=== PATIENT | male | born 1980 | race African-American/Black ===

== ENCOUNTER 2016-07-02 03:45 | Inpatient (IN) | payer MEDICARE, MEDICAID ==
[2016-07-02] VITALS (13 sets, daily range): BP systolic 115–172; BP diastolic 69–113; PULSE 62–105; RESP 14–22; TEMP 97.7–99.3; O2SAT 89–100
[~2016-07-02] VITALS: Ht 182.9 cm; Wt 99.5 kg
[~2016-07-02 03:45] MED LIST: AMOX875T PO; METO25TA3 PO; ZYRT10TA PO
[2016-07-02] MEDS ORDERED: SODIUM CHLOR 0.9% 1000 ML INJ 1,000 ML IV ONE ×2 (04:07→06:45)
[2016-07-02] MEDS ORDERED: SODIUM CHLORIDE 0.9% FLUSH 5 ML FLUSH IVF PRN (04:15)
[2016-07-02 04:30] LABS: AUTOMATED NEUTROPHIL # 2.9 TH/MM3 (1.8-7.7); BASOPHIL # 0.1 TH/MM3 (0-0.2); BASOPHIL % 0.7 % (0.0-2.0); EOSINOPHIL # 0.1 TH/MM3 (0-0.4); EOSINOPHIL % 1.5 % (0.0-4.0); HEMATOCRIT 47.8 % (39.0-51.0); LYMPH % 56.2 % (9.0-44.0); LYMPHOCYTE # 4.7 TH/MM3 (1.0-4.8); MEAN CELL VOLUME 95.1 FL (80.0-100.0); MEAN CORPUSCULAR HEMOGLOBIN 30.6 PG (27.0-34.0); MEAN CORPUSCULAR HGB CONC 32.2 % (32.0-36.0); MONO % 7.8 % (0.0-8.0); NEUT % 33.8 % (16.0-70.0); PLATELET COUNT 273 TH/MM3 (150-450); RED BLOOD COUNT 5.03 MIL/MM3 (4.50-5.90); RED CELL DISTRIBUTION WIDTH 13.8 % (11.6-17.2); WHITE BLOOD COUNT 8.4 TH/MM3 (4.0-11.0)
[2016-07-02 04:35] LABS: HEMO FLAGS AUTO DIFF
[2016-07-02 04:44] LABS: ALT (GPT) 33 U/L (12-78); ANION GAP 18 MEQ/L (5-15); AST (GOT) 34 U/L (15-37); BICARBONATE 19.3 MEQ/L (21.0-32.0); BLOOD UREA NITROGEN 16 MG/DL (7-18); CHLORIDE 106 MEQ/L (98-107); GLOMERULAR FILTRATION RATE 73 ML/MIN (>89); POTASSIUM 3.9 MEQ/L (3.5-5.1); SODIUM (NA) 143 MEQ/L (136-145)
[2016-07-02 04:47] LABS: ALKALINE PHOSPHATASE 100 U/L (45-117); TOTAL BILIRUBIN ADULT 0.3 MG/DL (0.2-1.0)
[2016-07-02 05:06] LABS: BLOOD GAS BASE EXCESS -3.9 mmol/L (-2-2); BLOOD GAS CARBOXYHEMOGLOBIN 3.8 % (0-4); BLOOD GAS HCO3 21 mmol/L (22-26); BLOOD GAS METHEMOGLOBIN 1.9 % (0-2); BLOOD GAS O2 HGB SATURATION 81 % (90-100); BLOOD GAS OXYGEN CONTENT 16.3 Vol % (12.0-20.0); BLOOD GAS PCO2 43 mmHg (38-42); BLOOD GAS PO2 55 mmHG (61-120); BLOOD GAS TOTAL HGB 14.3 G/DL (12.0-16.0); TEMP CORR TO 98.6
[2016-07-02 05:07] LABS: CRITICAL VALUE YES; DRAW SITE RT RADIAL; FIO2 100 %; NUMBER OF ARTERIAL PUNCTURES 1; OXYGEN DEVICE NRB; STAT YES; ULNAR PULSE PRESENT
--- NOTE | 2016-07-02 05:08 | RADRPT ---
EXAM DATE/TIME: 07/02/2016 04:42 [facility] COMPARISON: CT BRAIN W/O CONTRAST, January 17, 2016, 19:29. INDICATIONS : Seizure. RADIATION DOSE: 37.99 CTDIvol (mGy) MEDICAL HISTORY : Hypertension. SURGICAL HISTORY : Tonsillectomy. ENCOUNTER: Initial ACUITY: 1 day PAIN SCALE: 0/10 LOCATION: cranial TECHNIQUE: Multiple contiguous axial images were obtained of the head. Using automated exposure control and adj ustment of the mA and/or kV according to patient size, radiation dose was kept as low as reasonably a chievable to obtain optimal diagnostic quality images. FINDINGS: CEREBRUM: The ventricles are normal for age. No evidence of midline shift, mass lesion, hemorrhage or acute in farction. No extra-axial fluid collections are seen. POSTERIOR FOSSA: The cerebellum and brainstem are intact. The 4th ventricle is midline. The cerebellopontine angle i s unremarkable. EXTRACRANIAL: The visualized portion of the orbits is intact. Chronic left maxillary sinus disease. SKULL: The calvaria is intact. No evidence of skull fracture. CONCLUSION: Stable and unremarkable CT brain compared to the prior exam. Dinh Frias MD on July 02, 2016 at 5:05 Board Certified Radiologist. This report was verified electronically.
[2016-07-02 05:21] LABS: SCAN/DIFF AUTO DIFF CONFIRMED
[2016-07-02 05:37] LABS: APTT (PATIENT) 24.3 SEC (24.3-30.1); INTERNATIONAL NORMALIZED RATIO 0.9 RATIO; PROTHROMBIN TIME - PATIENT 10.4 SEC (9.8-11.6)
--- NOTE | 2016-07-02 05:37 | PD ---
HPI Chief Complaint: Seizure Time Seen by Provider: 03:57 Travel History International Travel<30 days: No Contact w/Intl Traveler<30days: No Traveled to known affect area: No History of Present Illness HPI The patient is a 36 year old male who presents to the [facility] emergency department with a history of reported generalized tonic-clonic seizure activity witnessed by his significant other at the bedside. He reports that she awoke to the bed shaking and him frothing at the mouth and biting his time. She reports that she rolled him over on his side and the symptoms resolved. She reports that this is the second time that he's had a seizure. He has been seen by Dr. Jackman, in follow-up of his evaluation in the emergency department for a new onset seizure. He has had an MRI of the brain done that was reportedly unremarkable. The patient has also followed up with his primary care physician in one of the family practice residents, Dr. Cano. He reports that he was not started on seizure medication. The patient on my arrival to the room is diaphoretic, O2 saturations are in the 70s. His significant other at the bedside reports that he has been intermittently having bouts of shortness of breath that they had been attributing to anxiety. She reports that he does have a history of sleep apnea and has CPAP, however he has not been wearing it regularly as he was feeling better. His other history is significant for recently being diagnosed with a sinus infection and being placed on amoxicillin. The patient reports that he has had a congested sounding cough recently. The patient denies any recent fevers, neck pain, chest pain, abdominal pain, vomiting, diarrhea, urinary symptoms, or other neurologic symptoms. The patient denies using any illicit drugs. [facility] Past Medical History Narrative Medical The patient's past medical history is significant for hypertension, history of seizure in January 2016, history of being legally blind, history of thrombophlebitis in the right leg, history of chronic varicose veins in the right leg Asthma: Yes Cardiovascular Problems: Yes (HTN) Diminished Hearing: No Hypertension: Yes Medical other: Yes (SLEEP APNEA ) Respiratory: Yes (BRONCHITIS) Immunizations Current: Yes Influenza Vaccination: No Past Surgical History Narrative Surgical The patient's past surgical history is significant for a tonsillectomy wrist ORIF, right thumb surgery. Tonsillectomy: Yes Social History Alcohol Use: No (PT DENIES) Tobacco Use: Yes (3-4 cigarettes per day) Substance Use: No Allergies-Medications (Allergen,Severity, Reaction): Coded Allergies: Latex (Verified Allergy, Intermediate, RASH "ONLY IF I WEAR THE GLOVES", ) Lisinopril (Verified Allergy, Intermediate, cough, 07/02/16) OLIVIA inhibitor cough Darvocet-N 100 (Verified Allergy, Mild, "MY FACE BREAKS OUT WITH WHELPS", 07/02/16) Reported Meds & Prescriptions Reported Meds & Active Scripts Active Amoxicillin 875 Mg Tab 875 Mg PO BID Metoprolol Tartrate 25 Mg Tab 25 Mg PO BID Review of Systems Except as stated in HPI: all other systems reviewed are Neg General / Constitutional: No: Fever Eyes: No: Visual changes HENT: Positive: Headaches, Rhinorrhea Cardiovascular: Positive: Dyspnea on exertion, No: Chest Pain or Discomfort Respiratory: Positive: Shortness of Breath Gastrointestinal: No: Nausea, Vomiting, Diarrhea, Abdominal Pain Genitourinary: No: Dysuria Musculoskeletal: No: Pain Skin: No Rash Neurologic: Positive: Change in Mentation, Seizures, No: Weakness, Focal Abnormalities, Slurred Speech, Sensory Disturbance Psychiatric: No: Depression Endocrine: No: Polydipsia Hematologic/Lymphatic: No: Easy Bruising Physical Exam Narrative General: The patient is a well-developed well-nourished male, initially diaphoretic on my arrival to the room with O2 saturations of 77% on room air. Head and Neck exam: Head is normocephalic atraumatic. Eyes: Pupils are equal round and reactive to light. Nose: Midline septum with pink mucous membranes Mouth: Dentition unremarkable. Moist mucus membranes. Posterior oropharynx is not erythematous. No tonsillar hypertrophy. Uvula midline. Airway patent. The patient has a contusion noted to bilateral sides of the tongue worse on the right compared to the left related to biting his tongue with seizure activity. Neck: No palpable lymphadenopathy. No nuchal rigidity. No thyromegaly. Cardiovascular: Sinus tachycardia in the low 100 without murmurs, gallops, or rubs. No pulse deficit to the extremities and simultaneous auscultation and palpation of his radial artery. Lungs: Crackles audible in the right lower lung base, no wheezes or rhonchi otherwise audible. Abdomen: Soft, without tenderness to palpation in all 4 quadrants of the abdomen. No guarding, rebound, or rigidity. normal bowel sounds are audible. Extremities: No clubbing, cyanosis, or edema. 2+ pulses in all 4 extremities. No calf tenderness on palpation. Back: No spinous process tenderness to palpation. No costovertebral angle tenderness to palpation. Neurologic Exam: Confused on my arrival to the room, however his O2 saturations were in the mid 70s. His mentation improved after being placed on a nonrebreather mask. Cranial nerves 2-12 were intact on exam. Strength is 5/5 in all 4 extremities. No sensory deficits noted. Skin Exam: No rash noted. Intact skin that is warm and diaphoretic. Data Data Last Documented VS Vital Signs Date Time Temp Pulse Resp B/P Pulse Ox O2 Delivery O2 Flow Rate FiO2 07/02/16 05:18 20 94 Non-Rebreather 15 07/02/16 05:16 62 134/84 07/02/16 04:50 100 07/02/16 03:50 97.7 Orders Complete Blood Count With Diff (07/02/16 04:07) Alcohol (Ethanol) (07/02/16 04:07) Drug Screen, Random Urine (07/02/16 04:07) Electrocardiogram (07/02/16 ) Ct Brain W/O Iv Contrast(Rout) (07/02/16 ) Blood Glucose (07/02/16 04:07) Ecg Monitoring (07/02/16 04:07) Iv Access Insert/Monitor (07/02/16 04:07) Oximetry (07/02/16 04:07) Comprehensive Metabolic Panel (07/02/16 04:07) Sodium Chlor 0.9% 1000 Ml Inj (Ns 1000 M (07/02/16 04:07) Sodium Chloride 0.9% Flush (Ns Flush) (07/02/16 04:15) Urinalysis - C+S If Indicated (07/02/16 04:07) Arterial Blood Gas (Abg) (07/02/16 04:34) Blood Culture (07/02/16 04:34) Influenzae A/B Antigen (07/02/16 04:34) Chest, Single Ap (07/02/16 04:34) Lactic Acid Sepsis Protocol (07/02/16 04:34) Creatine Kinase (Cpk) (07/02/16 04:34) Ckmb (Isoenzyme) Profile (07/02/16 04:34) Troponin I (07/02/16 04:34) B-Type Natriuretic Peptide (07/02/16 04:34) Prothrombin Time / Inr (Pt) (07/02/16 04:34) Act Partial Throm Time (Ptt) (07/02/16 04:34) D-Dimer (07/02/16 04:34) Magnesium (Mg) (07/02/16 04:34) Resp Bipap / Cpap Non Invas Vt (07/02/16 ) Ct Pulmonary Angiogram (07/02/16 05:49) Admit Order (Ed Use Only) (07/02/16 06:33) Sodium Chlor 0.9% 1000 Ml Inj (Ns 1000 M (07/02/16 06:45) CKMB (07/02/16 08:45) CKMB% (07/02/16 08:45) Labs Laboratory Tests Test 07/02/16 07/02/16 07/02/16 07/02/16 04:15 04:31 04:50 05:20 White Blood Count 8.4 TH/MM3 Red Blood Count 5.03 MIL/MM3 Hemoglobin 15.4 GM/DL Hematocrit 47.8 % Mean Corpuscular Volume 95.1 FL Mean Corpuscular Hemoglobin 30.6 PG Mean Corpuscular Hemoglobin 32.2 % Concent Red Cell Distribution Width 13.8 % Platelet Count 273 TH/MM3 Mean Platelet Volume 8.9 FL Neutrophils (%) (Auto) 33.8 % Lymphocytes (%) (Auto) 56.2 % Monocytes (%) (Auto) 7.8 % Eosinophils (%) (Auto) 1.5 % Basophils (%) (Auto) 0.7 % Neutrophils # (Auto) 2.9 TH/MM3 Lymphocytes # (Auto) 4.7 TH/MM3 Monocytes # (Auto) 0.7 TH/MM3 Eosinophils # (Auto) 0.1 TH/MM3 Basophils # (Auto) 0.1 TH/MM3 CBC Comment AUTO DIFF Differential Comment AUTO DIFF CONFIRMED Sodium Level 143 MEQ/L Potassium Level 3.9 MEQ/L Chloride Level 106 MEQ/L Carbon Dioxide Level 19.3 MEQ/L Anion Gap 18 MEQ/L Blood Urea Nitrogen 16 MG/DL Creatinine 1.34 MG/DL Estimat Glomerular Filtration 73 ML/MIN Rate Random Glucose 132 MG/DL Calcium Level 8.9 MG/DL Total Bilirubin 0.3 MG/DL Aspartate Amino Transf 34 U/L (AST/SGOT) Alanine Aminotransferase 33 U/L (ALT/SGPT) Alkaline Phosphatase 100 U/L B-Type Natriuretic Peptide 12 PG/ML Total Protein 8.0 GM/DL Albumin 4.0 GM/DL Ethyl Alcohol Level LESS THAN 3 MG/DL Blood Gas Puncture Site RT RADIAL Blood Gas Patient Temperature 98.6 Blood Gas HCO3 21 mmol/L Blood Gas Base Excess -3.9 mmol/L Blood Gas Oxygen Saturation 81 % Arterial Blood pH 7.32 Arterial Blood Partial 43 mmHg Pressure CO2 Arterial Blood Partial 55 mmHG Pressure O2 Arterial Blood Oxygen Content 16.3 Vol % Arterial Blood 3.8 % Carboxyhemoglobin Arterial Blood Methemoglobin 1.9 % Blood Gas Hemoglobin 14.3 G/DL Oxygen Delivery Device NRB Blood Gas Inspired Oxygen 100 % Prothrombin Time 10.4 SEC Prothromb Time International 0.9 RATIO Ratio Activated Partial 24.3 SEC Thromboplast Time D-Dimer Quantitative (PE/DVT) 4.58 MG/L FEU Lactic Acid Level 5.2 mmol/L Urine Color YELLOW Urine Turbidity HAZY Urine pH 5.0 Urine Specific [place] 1.014 Urine Protein 30 mg/dL Urine Glucose (UA) NEG mg/dL Urine Ketones 10 mg/dL Urine Occult Blood SMALL Urine Nitrite NEG Urine Bilirubin NEG Urine Urobilinogen LESS THAN 2.0 MG/DL Urine Leukocyte Esterase NEG Urine RBC LESS THAN 1 /hpf Urine WBC 1 /hpf Urine Squamous Epithelial 1 /hpf Cells Urine Bacteria RARE /hpf Urine Hyaline Casts 19 /lpf Urine Mucus FEW /lpf Microscopic Urinalysis Comment CULT NOT INDICATED Urine Opiates Screen NEG Urine Barbiturates Screen NEG Urine Amphetamines Screen NEG Urine Benzodiazepines Screen NEG Urine Cocaine Screen NEG Urine Cannabinoids Screen POS MDM Medical Decision Making Medical Screen Exam Complete: Yes Emergency Medical Condition: Yes Medical Record Reviewed: Yes Differential Diagnosis Seizure activity related to hypoxia, versus epilepsy. Shortness of breath related to pneumonia, versus influenza, versus new-onset congestive heart failure, versus acute coronary syndrome, versus ARDS Narrative Course During the course of the patients emergency department visit, the patients history, examination, and differential diagnosis were reviewed with the patient. The patient had IV access obtained and blood work sent for analysis. The patient was placed on a monitor worker with oximetry and blood pressure monitoring. An EKG was done. The patient's EKG shows a sinus rhythm heart rate of 62, no acute ST segment elevation is noted. No acute ST segment depression. The patient was provided supplemental oxygen immediately on my arrival to the room with the nonrebreather mask. An ABG was done on the nonrebreather mask and his PO2 was noted to be in the 50s. The patient was started on BiPAP. A chest x-ray was ordered in addition to the workup for seizure activity that was previously started. Blood cultures 2 were ordered lactic acid was ordered, influenza antigen was ordered. The patients laboratory studies were reviewed and remarkable for a white count of 8.4, hemoglobin 15.4, platelets 273 with 56.2, CMP is remarkable for CO2 of 19.3, anion gap 18, creatinine 1.34, glucose 132, BNP is 12, CPK and troponin I are pending. Lactic acid 5.2 which could be related to a combination of seizure activity and hypoxemia, PT PTT unremarkable, d-dimer 4.58, CTA to rule out PE was ordered. Urinalysis shows 30 protein 10 ketones small occult blood rare bacteria 19 hyalin casts, urine drug screen is positive for THC, alcohol less than 3. ABG on a nonrebreather mask reveals a pH of 7.32, bicarbonate 21, base excess -3.9, PCO2 43, PO2 55. The patient was placed on BiPAP. The patient's O2 saturation improved to 99- 100%. The patient became more awake and alert. Repeat ABG will be done on BiPAP to reassess. The patient reports feeling improved on BiPAP and is following commands, reporting that the shortness of breath has resolved. Radiology studies were reviewed and remarkable for a CT scan of the brain that is unremarkable. Chest x-ray was read by the reading radiologist as showing no acute abnormality. CTA to rule out PE is negative for PE, however the palpation patient has ground glass infiltrates bilaterally. The patients results were discussed with the patient, including the plan of care. I explained that further testing and/ or monitoring is indicated based on the patients history, examination, and/ or laboratory findings. Therefore, I recommended admission for additional evaluation. The patient expressed understanding and was agreeable with this plan. The patient was admitted to the hospital in guarded condition and sent to a bed under the care of family practice residents. Critical Care Narrative Aggregate critical care time was 45 minutes. Time to perform other separately billable procedures was not included in the critical care time. My time did not include minutes spent treating any other patients simultaneously or on activities that did not directly contribute to the patient's treatment. The services I provided to this patient were to treat and/or prevent clinically significant deterioration that could result in: Respiratory failure, versus cardiovascular collapse I provided critical care services requiring my management, as noted below: Chart data review, documentation time, medication orders and management, vital sign assessments/reviewing monitor data, ordering and reviewing lab tests, ordering and interpreting/reviewing x-rays and diagnostic studies, care of the patient and discussion of the patient with the admitting physicians. Sepsis Criteria SIRS Criteria (2 or more): Heart rate over 90 Physician Communication Physician Communication The patient's case was discussed with the family practice residents who did agree to admit the patient for further evaluation and treatment at this time. Diagnosis Primary Impression: Hypoxemia Additional Impression: Seizure Admitting Information Admitting Physician Requests: Admit Letty Westbrook MD Jul 02, 2016 05:37
[2016-07-02 05:39] LABS: BACTERIA, URINE RARE /hpf; BLOOD, URINE SMALL (NEG); COMMENT (UR) CULT NOT INDICATED; CULTURE IF INDICATED CULT NOT INDICATED; GLUCOSE,URINE NEG (NEG); HYALINE CAST, URINE 19 /lpf (RARE); KETONE, URINE 10 mg/dL (NEG); MUCUS URINE FEW /lpf (OCC); NITRITE,URINE NEG (NEG); SQUAMOUS EPITHELIAL CELL URINE 1 /hpf (0-5); URINE COLOR YELLOW (YELLW/STRAW)
[2016-07-02 05:42] LABS: AMPHETAMINE, URINE NEG (NEG); BARBITURATES, URINE NEG (NEG); COCAINE, URINE NEG (NEG)
--- NOTE | 2016-07-02 05:48 | RADRPT ---
EXAM DATE/TIME: 07/02/2016 05:01 [facility] COMPARISON: CHEST PA & LAT, December 08, 2011, 12:56. INDICATIONS : Shortness of breath. MEDICAL HISTORY : Hypertension. SURGICAL HISTORY : Tonsillectomy. ENCOUNTER: Initial ACUITY: 1 day PAIN SCORE: Non-responsive. LOCATION: Bilateral chest FINDINGS: A single view of the chest demonstrates the lungs to be symmetrically aerated without evidence of mas s, infiltrate or effusion. The cardiomediastinal contours are unremarkable. Osseous structures are intact. CONCLUSION: No acute infiltrates. Stable examination. Dinh Frias MD on July 02, 2016 at 5:46 Board Certified Radiologist. This report was verified electronically.
--- NOTE | 2016-07-02 06:34 | HHI.HP ---
[facility] Service Family Medicine Primary Care Physician Tran , R3 Damon Cano MD Admission Diagnosis Diagnoses: International Travel<30 Days: No Contact w/Intl Traveler<30days: No Known Affected Area: No History of Present Illness 36-year-old male with a past medical history significant for previous seizure 1 and hypertension presents to the emergency department status post seizure activity this evening. Patient was in bed asleep when his partner noticed a generalized shaking and frothing at the mouth. Patient also bit his tongue. He was then brought to the emergency department by his significant other. He was seen in January after having seizure activity and was referred to neurology who did a brain MRI and did not start him on any seizure medications at that time. Patient was recently treated for sinus infection with high-dose amoxicillin although he did not position his antibiotics. 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 (Yaima Henderson MD R3) Review of Systems Other Obtained mostly from significant other as patient was on BiPAP and having difficulty answering: Denies fever or chills Denies blurry vision, otorrhea, rhinorrhea Denies sore throat and cough No chest pain, palpitations, positive shortness of breath No abdominal pain Denies constipation/diarrhea/nausea/vomiting Denies muscle pain/weakness No rashes (Yaima Henderson MD R3) Past Family Social History Past Medical History Hypertension Recently diagnosed with sinus infection Previous seizure 1 Past Surgical History Tonsillectomy Reported Medications Reported Meds & Active Scripts Active Amoxicillin 875 Mg Tab 875 Mg PO BID Metoprolol Tartrate 25 Mg Tab 25 Mg PO BID (Yaima Henderson MD R3) Allergies: Coded Allergies: Latex (Verified Allergy, Intermediate, RASH "ONLY IF I WEAR THE GLOVES", ) Lisinopril (Verified Allergy, Intermediate, cough, 07/02/16) OLIVIA inhibitor cough Darvocet-N 100 (Verified Allergy, Mild, "MY FACE BREAKS OUT WITH WHELPS", 07/02/16) *MDRO Multi-Drug Resistant Organism (Verified Adverse Reaction, Unknown, MRSA, 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 Dad lives in the [place], health unknown. Siblings with hypertension. Social History to legally blind . Both can not drive, and walk everywhere. He has two children, 4 and 5 years old. (Yaima Henderson MD R3) Physical Exam Vital Signs Vital Signs Date Time Temp Pulse Resp B/P Pulse Ox O2 Delivery O2 Flow Rate FiO2 07/02/16 05:18 20 94 Non-Rebreather 15 07/02/16 05:16 62 14 134/84 100 BiPAP 07/02/16 04:50 98 100 07/02/16 03:56 97 18 93 Nasal Cannula 2 07/02/16 03:50 97.7 105 18 120/84 89 Physical Exam Gen.: No acute distress Head: Normocephalic. Atraumatic. EENT: Pupils equal round and reactive to light. Nose without drainage. Airway intact. Throat without injection. Cardiovascular: Regular rate and rhythm. No murmurs, rubs or gallops. Respiratory: Lungs clear to auscultation bilaterally. No wheezes or rhonchi. Abdomen: Soft, nontender, nondistended. No peritoneal signs. Musculoskeletal: No gross deformities. No edema. Skin: No obvious rashes or erythema. Neuro: Sensory and motor grossly intact. Cranial nerves II through XII grossly intact. Psych: Appropriate mood and affect Laboratory Laboratory Tests Test 07/02/16 07/02/16 07/02/16 07/02/16 04:15 04:31 04:50 05:20 White Blood Count 8.4 Red Blood Count 5.03 Hemoglobin 15.4 Hematocrit 47.8 Mean Corpuscular Volume 95.1 Mean Corpuscular Hemoglobin 30.6 Mean Corpuscular Hemoglobin 32.2 Concent Red Cell Distribution Width 13.8 Platelet Count 273 Mean Platelet Volume 8.9 Neutrophils (%) (Auto) 33.8 Lymphocytes (%) (Auto) 56.2 Monocytes (%) (Auto) 7.8 Eosinophils (%) (Auto) 1.5 Basophils (%) (Auto) 0.7 Neutrophils # (Auto) 2.9 Lymphocytes # (Auto) 4.7 Monocytes # (Auto) 0.7 Eosinophils # (Auto) 0.1 Basophils # (Auto) 0.1 CBC Comment AUTO DIFF Differential Comment AUTO DIFF CONFIRMED Sodium Level 143 Potassium Level 3.9 Chloride Level 106 Carbon Dioxide Level 19.3 Anion Gap 18 Blood Urea Nitrogen 16 Creatinine 1.34 Estimat Glomerular Filtration 73 Rate Random Glucose 132 Calcium Level 8.9 Total Bilirubin 0.3 Aspartate Amino Transf 34 (AST/SGOT) Alanine Aminotransferase 33 (ALT/SGPT) Alkaline Phosphatase 100 B-Type Natriuretic Peptide 12 Total Protein 8.0 Albumin 4.0 Ethyl Alcohol Level LESS THAN 3 Blood Gas Puncture Site RT RADIAL Blood Gas Patient Temperature 98.6 Blood Gas HCO3 21 Blood Gas Base Excess -3.9 Blood Gas Oxygen Saturation 81 Arterial Blood pH 7.32 Arterial Blood Partial 43 Pressure CO2 Arterial Blood Partial 55 Pressure O2 Arterial Blood Oxygen Content 16.3 Arterial Blood 3.8 Carboxyhemoglobin Arterial Blood Methemoglobin 1.9 Blood Gas Hemoglobin 14.3 Oxygen Delivery Device NRB Blood Gas Inspired Oxygen 100 Prothrombin Time 10.4 Prothromb Time International 0.9 Ratio Activated Partial 24.3 Thromboplast Time D-Dimer Quantitative (PE/DVT) 4.58 Lactic Acid Level 5.2 Urine Color YELLOW Urine Turbidity HAZY Urine pH 5.0 Urine Specific [place] 1.014 Urine Protein 30 Urine Glucose (UA) NEG Urine Ketones 10 Urine Occult Blood SMALL Urine Nitrite NEG Urine Bilirubin NEG Urine Urobilinogen LESS THAN 2.0 Urine Leukocyte Esterase NEG Urine RBC LESS THAN 1 Urine WBC 1 Urine Squamous Epithelial 1 Cells Urine Bacteria RARE Urine Hyaline Casts 19 Urine Mucus FEW Microscopic Urinalysis Comment CULT NOT INDICATED Urine Opiates Screen NEG Urine Barbiturates Screen NEG Urine Amphetamines Screen NEG Urine Benzodiazepines Screen NEG Urine Cocaine Screen NEG Urine Cannabinoids Screen POS Date/Time Procedure Status Source Growth 07/02/16 04:50 Influenza Types A,B Antigen (TOD) - Final Complete Nasal Aspirate NEGATIVE FOR FLU A AND B ANTIGEN.... 07/02/16 04:50 Aerobic Blood Culture Received Blood Peripheral Pending 07/02/16 04:50 Anaerobic Blood Culture Received Blood Peripheral Pending (Yaima Henderson MD R3) Result Diagram: 07/02/16 0415 07/02/16 0415 Assessment and Plan Assessment and Plan 36-year-old male with past medical history significant for hypertension and previous seizure times one in January 2016 presents to the emergency department status post seizure activity. He was found to be hypoxic and is currently requiring BiPAP. 1. Hypoxemia Currently requiring BiPAP, satting 100% Secondary to seizure versus PE, CTA pending, d-dimer elevated 2. Seizure Neurology consulted, appreciate their assistance 3. Hypertension Continue home metoprolol 4. Elevated lactic acid Likely secondary to seizure activity 5. FEN Fluids: Normal saline at 150 cc/hour Electrolytes: Replete when necessary Nutrition: Regular diet Code Status Full code (Yaima Henderson MD R3) Attending Attestation Patient seen and examined. Case reviewed and discussed with the resident team. Agree with plan of care as discussed with me and documented in the resident note. agree with Neurology consult with his second seizure especially. Concerned about his needing bipap and his lactic acid and blood gas so will recommend placing him in the ICU for close monitoring (Patricia Khanna MD) Physician Certification 2 Midnight Certification Type: Admission for Inpatient Services Order for Inpatient Services The services are ordered in accordance with Medicare regulations or non- Medicare payer requirements, as applicable. In the case of services not specified as inpatient-only, they are appropriately provided as inpatient services in accordance with the 2-midnight benchmark. Estimated LOS (days): 2 2 days is the estimated time the patient will need to remain in the hospital, assuming treatment plan goals are met and no additional complications. Post-Hospital Plan: Home (Yaima Henderson MD R3) Yaima Henderson MD R3 Jul 02, 2016 06:34 Patricia Khanna MD Jul 03, 2016 14:26
[2016-07-02] MEDS: SODIUM CHLOR 0.9% 1000 ML INJ 1,000 ML IV SCH ×3 (06:41→20:39)
[2016-07-02] MEDS ORDERED: NALOXONE HCL 0.4 MG/ML AMP IV PRN (06:45)
[2016-07-02] MEDS ORDERED: SODIUM CHLORIDE 0.9% FLUSH 5 ML FLUSH FLUSH PRN (06:45)
[2016-07-02] MEDS ORDERED: ACETAMINOPHEN 325 MG TAB PO PRN (06:45)
[2016-07-02] MEDS ORDERED: ONDANSETRON HCL 4 MG/2 ML VIAL IVP PRN (06:45)
[2016-07-02] MEDS ORDERED: LORazepam 2 MG/ML VIAL IV PUSH PRN ×2 (07:00→12:15)
[2016-07-02 07:10] LABS: LACTIC ACID GHOST NOT REPORTABLE
[2016-07-02] MEDS ORDERED: IOHEXOL 350 MG/ML 10 ML VIAL (for RAD DIAG) IV ONE (07:14)
--- NOTE | 2016-07-02 07:23 | RADRPT ---
EXAM DATE/TIME: 07/02/2016 07:05 [facility] COMPARISON: No previous studies available for comparison. INDICATIONS : Sudden onset shortness of breath after seizure IV CONTRAST: 60 cc Omnipaque 350 (iohexol) IV RADIATION DOSE: 23.24 CTDIvol (mGy) MEDICAL HISTORY : Hypertension. SURGICAL HISTORY : None. ENCOUNTER: Initial ACUITY: 1 day PAIN SCALE: 0/10 LOCATION: chest TECHNIQUE: Volumetric scanning of the chest was performed using a pulmonary embolism protocol MIP images were re constructed. Using automated exposure control and adjustment of the mA and/or kV according to patien t size, radiation dose was kept as low as reasonably achievable to obtain optimal diagnostic quality images. FINDINGS: PULMONARY ARTERIES: No filling defects are seen in the pulmonary arteries through the segmental level. LUNGS: There is diffuse bilateral airspace disease/ground glass densities greater in the lower lobes. No co ncerning pulmonary nodule is visualized. PLEURAE: There is no pleural thickening or pleural effusion. MEDIASTINUM: There is good visualization of the great vessels of the middle mediastinum. No evidence of mediastin al or hilar adenopathy/mass. MUSCULOSKELETAL: Within normal limits for patient age. MISCELLANEOUS: The visualized upper abdominal organs demonstrate no acute abnormality. CONCLUSION: 1. Diffuse bilateral airspace disease/ground glass densities, likely infiltrate. 2. No evidence for pulmonary embolism. Polo Gallardo MD on July 02, 2016 at 7:18 Board Certified Radiologist. This report was verified electronically.
[2016-07-02] MEDS: HEPARIN SODIUM - SQ 10,000 UNITS/ML VIAL SQ SCH ×2 (08:15→16:11)
[2016-07-02] MEDS: SODIUM CHLORIDE 0.9% FLUSH 5 ML FLUSH FLUSH SCH ×2 (09:00→20:39)
[2016-07-02 09:51] LABS: MAGNESIUM 2.5 MG/DL (1.5-2.5)
[2016-07-02 10:03] LABS: CKMB 1.3 NG/ML (0.5-3.6)
[2016-07-02] MEDS: PIPERACIL-TAZO 4.5 GM PREMIX 100 ML IV SCH ×3 (10:29→23:07)
[2016-07-02] MEDS ORDERED: ACETAMINOPHEN/HYDROcodone 325 MG/5 MG TAB PO PRN ×2 (10:30)
[2016-07-02] MEDS ORDERED: methylPREDNISolone SOD SUCC 125 MG/2 ML VIAL IV PUSH ONE (11:00)
[2016-07-02] MEDS ORDERED: MIDAZOLAM HCL 5 MG/ML VIAL (1 ML) ONE (11:35)
[2016-07-02] MEDS ORDERED: PROPOFOL 1000 MG/100 ML INJ 100 ML ONE (11:41)
[2016-07-02] MEDS ORDERED: ROCURONIUM INJ 50 MG/5 ML VIAL ONE (11:42)
--- NOTE | 2016-07-02 12:32 | RADRPT ---
EXAM DATE/TIME: 07/02/2016 12:05 [facility] COMPARISON: CT PULMONARY ANGIOGRAM, July 02, 2016, 7:05. CHEST SINGLE AP, July 02, 2016, 5:01. INDICATIONS : Post intubation MEDICAL HISTORY : Hypertension. SURGICAL HISTORY : Tonsillectomy. ENCOUNTER: Subsequent ACUITY: 1 day PAIN SCORE: Non-responsive. LOCATION: Bilateral chest FINDINGS: Portable AP view of the chest demonstrates a normal-sized cardiac silhouette. Endotracheal tube is in place with tip at the aortic knob level measuring approximately 6 cm from the evert. Nasogastric tu be courses beyond the GE junction with tip in the gastric fundus. Multiple EKG lines overlie the katherin ent. Lungs are underinflated and there is airspace consolidation in the right midlung zone overlying the hilar region there is diffuse mild hazy opacity bilaterally. No pleural effusion or pneumothorax is seen. CONCLUSION: 1. Endotracheal tube in appropriate position with tip measuring approximately 6 cm from the evert. 2. Persistent diffuse bilateral airspace opacity with consolidation in the medial right midlung zone. Gokul Blancas MD on July 02, 2016 at 12:28 Board Certified Radiologist. This report was verified electronically.
[2016-07-02 12:49] LABS: BLOOD GAS BASE EXCESS -9.3 mmol/L (-2-2); BLOOD GAS CARBOXYHEMOGLOBIN 0.7 % (0-4); BLOOD GAS HCO3 17 mmol/L (22-26); BLOOD GAS O2 HGB SATURATION 95 % (90-100); BLOOD GAS OXYGEN CONTENT 18.3 Vol % (12.0-20.0); BLOOD GAS PCO2 44 mmHg (38-42); BLOOD GAS PO2 117 mmHg (61-120); BLOOD GAS TOTAL HGB 13.6 G/DL (12.0-16.0); CRITICAL VALUE YES; OXYGEN DEVICE VENTILATOR; TEMP CORR TO 98.6
[2016-07-02 12:50] LABS: DRAW SITE RT RADIAL; FIO2 100 %; NUMBER OF ARTERIAL PUNCTURES 1; STAT NO; ULNAR PULSE PRESENT; VENT SETTINGS SEE COMMENTS
[2016-07-02] MEDS ORDERED: MORPHINE SULFATE 4 MG/ML INJ IV PUSH PRN (13:00)
[2016-07-02] MEDS ORDERED: PROPOFOL 1000 MG/100 ML INJ 100 ML IV SCH (13:00)
[2016-07-02] MEDS ORDERED: SODIUM BICARBONATE 8.4% INJ 50 MEQ/50 ML SYR IV PUSH ONE (13:00)
[2016-07-02] MEDS ORDERED: LABETALOL HCL 100 MG/20 ML VIAL IV PUSH PRN (13:00)
--- NOTE | 2016-07-02 13:07 | PD.CONS ---
HPI Service Critical Care Medicine Consult Requested By Reason for Consult Generalized seizures, refractory to versed and ativan Primary Care Physician Angel Luis Mayfield D, MD Review of Systems ROS Unobtainable. Past Family Social History Allergies: Coded Allergies: Latex (Verified Allergy, Intermediate, RASH "ONLY IF I WEAR THE GLOVES", ) Lisinopril (Verified Allergy, Intermediate, cough, 07/02/16) OLIVIA inhibitor cough Darvocet-N 100 (Verified Allergy, Mild, "MY FACE BREAKS OUT WITH WHELPS", 07/02/16) Past Medical History Past Medical History Hypertension Recently diagnosed with sinus infection Previous seizure 1 Past Surgical History Tonsillectomy Reported Medications Reported Meds & Active Scripts Active Amoxicillin 875 Mg Tab 875 Mg PO BID Metoprolol Tartrate 25 Mg Tab 25 Mg PO BID Allergies: Coded Allergies: Latex (Verified Allergy, Intermediate, RASH "ONLY IF I WEAR THE GLOVES", ) Lisinopril (Verified Allergy, Intermediate, cough, 07/02/16) OLIVIA inhibitor cough Darvocet-N 100 (Verified Allergy, Mild, "MY FACE BREAKS OUT WITH WHELPS", 07/02/16) Physical Exam Vital Signs Vital Signs Date Time Temp Pulse Resp B/P Pulse Ox O2 Delivery O2 Flow Rate FiO2 07/02/16 11:45 100 100 07/02/16 10:00 79 18 166/113 98 Nasal Cannula 4 07/02/16 09:03 97 Nasal Cannula 4.00 07/02/16 07:33 68 22 172/109 100 BiPAP 07/02/16 05:18 20 94 Non-Rebreather 15 07/02/16 05:16 62 14 134/84 100 BiPAP 07/02/16 04:50 98 100 07/02/16 03:56 97 18 93 Nasal Cannula 2 07/02/16 03:50 97.7 105 18 120/84 89 Physical Exam P 138, BP 247/146, R 36 labored, Sats 76% Head: Diaphoretic, atraumatic. Neck: Rigid, airway partially obstructed. Lungs: Diffuse crackles and transmitted upper airway obstructive sounds. Heart: NL S1S2, tachycardia, Neck veins distended. Abdomen: Voluntary guarding. Soft otherwise Extremities: Warm, well perfused. Skin: Diaphoretic Neuro: Generalized tonic seizure, waxing and waning in severity. Laboratory Laboratory Tests Test 07/02/16 07/02/16 07/02/16 07/02/16 04:15 04:31 04:50 05:20 White Blood Count 8.4 Red Blood Count 5.03 Hemoglobin 15.4 Hematocrit 47.8 Mean Corpuscular Volume 95.1 Mean Corpuscular Hemoglobin 30.6 Mean Corpuscular Hemoglobin 32.2 Concent Red Cell Distribution Width 13.8 Platelet Count 273 Mean Platelet Volume 8.9 Neutrophils (%) (Auto) 33.8 Lymphocytes (%) (Auto) 56.2 Monocytes (%) (Auto) 7.8 Eosinophils (%) (Auto) 1.5 Basophils (%) (Auto) 0.7 Neutrophils # (Auto) 2.9 Lymphocytes # (Auto) 4.7 Monocytes # (Auto) 0.7 Eosinophils # (Auto) 0.1 Basophils # (Auto) 0.1 CBC Comment AUTO DIFF Differential Comment AUTO DIFF CONFIRMED Sodium Level 143 Potassium Level 3.9 Chloride Level 106 Carbon Dioxide Level 19.3 Anion Gap 18 Blood Urea Nitrogen 16 Creatinine 1.34 Estimat Glomerular Filtration 73 Rate Random Glucose 132 Calcium Level 8.9 Total Bilirubin 0.3 Aspartate Amino Transf 34 (AST/SGOT) Alanine Aminotransferase 33 (ALT/SGPT) Alkaline Phosphatase 100 B-Type Natriuretic Peptide 12 Total Protein 8.0 Albumin 4.0 Ethyl Alcohol Level LESS THAN 3 Blood Gas Puncture Site RT RADIAL Blood Gas Patient Temperature 98.6 Blood Gas HCO3 21 Blood Gas Base Excess -3.9 Blood Gas Oxygen Saturation 81 Arterial Blood pH 7.32 Arterial Blood Partial 43 Pressure CO2 Arterial Blood Partial 55 Pressure O2 Arterial Blood Oxygen Content 16.3 Arterial Blood 3.8 Carboxyhemoglobin Arterial Blood Methemoglobin 1.9 Blood Gas Hemoglobin 14.3 Oxygen Delivery Device NRB Blood Gas Inspired Oxygen 100 Prothrombin Time 10.4 Prothromb Time International 0.9 Ratio Activated Partial 24.3 Thromboplast Time D-Dimer Quantitative (PE/DVT) 4.58 Lactic Acid Level 5.2 Urine Color YELLOW Urine Turbidity HAZY Urine pH 5.0 Urine Specific [place] 1.014 Urine Protein 30 Urine Glucose (UA) NEG Urine Ketones 10 Urine Occult Blood SMALL Urine Nitrite NEG Urine Bilirubin NEG Urine Urobilinogen LESS THAN 2.0 Urine Leukocyte Esterase NEG Urine RBC LESS THAN 1 Urine WBC 1 Urine Squamous Epithelial 1 Cells Urine Bacteria RARE Urine Hyaline Casts 19 Urine Mucus FEW Microscopic Urinalysis Comment CULT NOT INDICATED Urine Opiates Screen NEG Urine Barbiturates Screen NEG Urine Amphetamines Screen NEG Urine Benzodiazepines Screen NEG Urine Cocaine Screen NEG Urine Cannabinoids Screen POS Test 07/02/16 07/02/16 08:45 12:35 Lactic Acid Level 0.9 Magnesium Level 2.5 Total Creatine Kinase 402 Creatine Kinase MB 1.3 Creatine Kinase MB % 0.3 Troponin I 0.07 Blood Gas Puncture Site RT RADIAL Blood Gas Patient Temperature 98.6 Blood Gas HCO3 17 Blood Gas Base Excess -9.3 Blood Gas Oxygen Saturation 95 Arterial Blood pH 7.22 Arterial Blood Partial 44 Pressure CO2 Arterial Blood Partial 117 Pressure O2 Arterial Blood Oxygen Content 18.3 Arterial Blood 0.7 Carboxyhemoglobin Arterial Blood Methemoglobin 1.0 Blood Gas Hemoglobin 13.6 Oxygen Delivery Device VENTILATOR Blood Gas Ventilator Setting SEE COMMENTS Blood Gas Inspired Oxygen 100 Date/Time Procedure Status Source Growth 07/02/16 04:50 Influenza Types A,B Antigen (TOD) - Final Complete Nasal Aspirate NEGATIVE FOR FLU A AND B ANTIGEN.... 07/02/16 04:50 Aerobic Blood Culture Received Blood Peripheral Pending 07/02/16 04:50 Anaerobic Blood Culture Received Blood Peripheral Pending Result Diagram: 07/02/16 0415 07/02/16 0415 Assessment and Plan Assessment and Plan Assessment: 1. Generalized Seizures, sustained. 2. Respiratory Failure, Hypoxemic. 3. Lactic Acidosis. 4. Encephalopathy. Plan: RESP: PRVC vent mode, propofol sedation for seizure control. Deep sedation pending EEG confirmation of control. PEEP 10. NEURO: Ativan iv prn breakthrough. AEDs per Neurology Service. CV: Labetalol for BP control. RENAL: Bicarb 2 amps iv. Confirm correction of lactic acidosis. ID: Cultures for fevers. HEME: Follow WBCs, coags in view of tongue bleeding. GI: NG to LIS. : Wang to CBD. PX: Hold chemical DVT px, protonix for GI. Overall impression: Recent crescendo seizure pattern with past history of seizures per record. No obvious instigating event, ? hypoxemia. He is critically ill with sustained seizures requiring heavy propofol suppression and mechanical ventilation. Appears to have a viral illness with diffuse alveolar infiltrates and impaired oxygen diffusion. Does he need an LP? Will discuss with primary service. Critical care 46 mins aside from procedures. Ciro Bejarano MD Jul 02, 2016 13:07
--- NOTE | 2016-07-02 13:41 | PD.PROCEDR ---
Procedure Note Procedure DX: Hypoxemic Respiratory Failure (J96.01), Generalized Seizures OP: Orotracheal Intubation (94079) Procedure: Bag mask ventilation while obtaining seizure control with versed 10 mg and ativan 4 mandy. Rocuronium administered 100 mg iv. Intubated orally with 8.0 tube. Position confirmed with CO2 detection, breath sounds, sats 100%. CXR with tube in good position. Ciro Bejarano MD Jul 02, 2016 13:41
[2016-07-02] MEDS: VANCOMYCIN INJ 1,500 MG in SODIUM CHLORID 0.9% 500 ML INJ 500 ML IV SCH (14:11)
[2016-07-02] MEDS ORDERED: levETIRAcetam 1000 MG INJ 100 ML IV ONE (14:15)
--- NOTE | 2016-07-02 14:26 | EKG ---
Date Performed: 07/02/2016 Time Performed: 13:33:40 PTAGE: 36 years EKG: Sinus rhythm NORMAL ECG NO SIGNIFICANT CHANGE FROM PRIOR ELECTROCARDIOGRAM. PREVIOUS TRACING : 07/02/2016 05.08 DOCTOR: Femi Perez Interpretating Date/Time 07/02/2016 14:24:34
--- NOTE | 2016-07-02 15:35 | MG ---
cc: BRYON LANE M.D., PETER KENT MD Lab No: Date: 07/02/2016 Age: 36 Sex: M INDICATION An urgent EEG was obtained on this 36-year-old patient with history of recurrent seizures. The patient is intubated on Diprivan at 50 mcg. Ativan was given recently. DESCRIPTION The EEG shows sleep spindles and theta activity throughout. There is some fluctuation in amplitude but overall there appears to be symmetrical rhythms. There are some small sharp waves/discharges in the frontal head regions bilaterally of uncertain significance. There is some probable faster frequencies in the alpha and beta range posteriorly and bilaterally. Hyperventilation could not be performed. Photic stimulation was unremarkable. INTERPRETATION This EEG shows asleep features throughout with some small sharp waves/discharges frontally bilaterally of uncertain significance. Specifically, no distinct epileptiform features present. Bryon Lane MD [facility] /2:51 PM /3:29 PM
--- NOTE | 2016-07-02 16:43 | MB ---
cc: BRYON LANE M.D. DATE OF CONSULTATION: 07/02/2016 REASON FOR CONSULTATION: Recurrent seizures. HISTORY OF PRESENT ILLNESS: The patient had a previous seizure in January 2016. He was not treated at that time with antiepileptic medications. He was doing well and I spoke to his . Around 03:00 a.m. this morning he developed a seizure. The observed a typical generalized tonic-clonic seizure. He was brought to the hospital and he appeared to have some respiratory discomfort. He was transferred to the unit and in the unit around 1 p.m. he had another seizure. The nurse described that he started with some apparent right facial weakness and speech difficulty, then this turned out to be a grand mal seizure that was apparently somewhat difficult to be controlled. He was subsequently intubated and has been given Diprivan. His current diagnosis also included apparent pneumonia, history of hypertension and recent sinus infectious process. He was taking amoxicillin 875 milligrams b.i.d. and metoprolol. No recent alcohol use. The denied any drugs. Urine toxicology positive for cannabinoids. NEUROLOGICAL EXAMINATION: The patient is sedated and upon somatosensory stimulation he does show some mild withdrawal bilaterally. Reflexes were trace responses but present and plantar responses were flexor bilaterally. Pupils were small and about the same size reactive. ANCILLARY DATA CBC essentially normal. Lymph percentage is elevated to 56.2. Creatinine 1.34, glucose 132, sodium, potassium normal. CPK mildly elevated to 402. CT brain normal and CT angiography of the chest suggests infiltrate and no pulmonary embolism. ASSESSMENT Seizure recurrence. He had at least a couple of seizures today, one at home and one in the hospital, now intubated. The previous seizure in January of 2016 was not treated at that point. I don't see any obvious need for lumbar puncture right now. I am starting him on Keppra. An EEG was obtained and I already saw the study which is benign. It shows sleep/sedated EEG background features. We will monitor the clinical course. An MRI will be necessary and the plan on obtaining this, perhaps tomorrow, when he is more stable, brain study. I will follow the neurological course. Thank you for asking us to assist in his care. Bryon Lane MD [facility]/[place] /2:57 PM /4:08 PM
--- NOTE | 2016-07-02 16:47 | EKG ---
Date Performed: 07/02/2016 Time Performed: 05:08:47 PTAGE: 36 years EKG: Sinus rhythm Compared to prior tracing no significant change NORMAL ECG PREVIOUS TRACING 12/08/2011 @ 12.50.48 DOCTOR: Daja Rodriguez Interpretating Date/Time 07/02/2016 16:46:09
[2016-07-02] MEDS: PROPOFOL 1000 MG/100 ML INJ 100 ML IV SCH ×2 (17:11→19:58)
[2016-07-02] MEDS: levETIRAcetam 250 MG TAB PO SCH (20:00)
[2016-07-02] MEDS: CHLORHEXIDINE 0.12% (ORAL KIT) 15 ML CUP MT SCH (20:39)
[2016-07-02] MEDS: levETIRAcetam INJ 750 MG in SODIUM CHLORIDE 0.9% INJ 100 ML IV SCH (21:45)
[2016-07-03] VITALS (12 sets, daily range): BP systolic 109–139; BP diastolic 69–82; PULSE 56–94; RESP 20–25; TEMP 98.1–98.9; O2SAT 95–100
[2016-07-03] MEDS: VANCOMYCIN INJ 1,500 MG in SODIUM CHLORID 0.9% 500 ML INJ 500 ML IV SCH ×2 (01:24→11:53)
[2016-07-03] MEDS: HEPARIN SODIUM - SQ 10,000 UNITS/ML VIAL SQ SCH ×3 (01:25→16:09)
[2016-07-03] MEDS: PROPOFOL 1000 MG/100 ML INJ 100 ML IV SCH ×3 (01:39→08:58)
[2016-07-03] MEDS: SODIUM CHLOR 0.9% 1000 ML INJ 1,000 ML IV SCH ×4 (02:16→23:00)
[2016-07-03 05:04] LABS: AUTOMATED NEUTROPHIL # 12.3 TH/MM3 (1.8-7.7); BASOPHIL % 0.1 % (0.0-2.0); HEMATOCRIT 35.7 % (39.0-51.0); HEMO FLAGS DIFF FINAL; LYMPH % 8.3 % (9.0-44.0); LYMPHOCYTE # 1.2 TH/MM3 (1.0-4.8); MEAN CELL VOLUME 91.3 FL (80.0-100.0); MEAN CORPUSCULAR HEMOGLOBIN 30.5 PG (27.0-34.0); MEAN CORPUSCULAR HGB CONC 33.4 % (32.0-36.0); MONO % 5.3 % (0.0-8.0); NEUT % 86.3 % (16.0-70.0); PLATELET COUNT 221 TH/MM3 (150-450); RED BLOOD COUNT 3.91 MIL/MM3 (4.50-5.90); RED CELL DISTRIBUTION WIDTH 13.7 % (11.6-17.2); WHITE BLOOD COUNT 14.3 TH/MM3 (4.0-11.0)
[2016-07-03] MEDS: PIPERACIL-TAZO 4.5 GM PREMIX 100 ML IV SCH ×2 (05:13→10:30)
--- NOTE | 2016-07-03 05:37 | EKG ---
Date Performed: 07/02/2016 Time Performed: 20:44:31 PTAGE: 36 years EKG: Sinus rhythm NORMAL ECG NO SIGNIFICANT CHANGE FROM PRIOR ELECTROCARDIOGRAM. PREVIOUS TRACING : 07/02/2016 13.33 DOCTOR: Femi Perez Interpretating Date/Time 07/03/2016 05:36:54
[2016-07-03 05:41] LABS: ALKALINE PHOSPHATASE 59 U/L (45-117); ALT (GPT) 23 U/L (12-78); ANION GAP 12 MEQ/L (5-15); AST (GOT) 25 U/L (15-37); BICARBONATE 21.6 MEQ/L (21.0-32.0); BLOOD UREA NITROGEN 27 MG/DL (7-18); CHLORIDE 111 MEQ/L (98-107); GLOMERULAR FILTRATION RATE 28 ML/MIN (>89); POTASSIUM 4.3 MEQ/L (3.5-5.1); SODIUM (NA) 145 MEQ/L (136-145); TOTAL BILIRUBIN ADULT 0.8 MG/DL (0.2-1.0)
[2016-07-03] MEDS: SODIUM CHLORIDE 0.9% FLUSH 5 ML FLUSH FLUSH SCH ×2 (08:12→19:48)
[2016-07-03] MEDS: CHLORHEXIDINE 0.12% (ORAL KIT) 15 ML CUP MT SCH ×2 (08:14→19:43)
[2016-07-03] MEDS: levETIRAcetam INJ 750 MG in SODIUM CHLORIDE 0.9% INJ 100 ML IV SCH ×2 (08:17→19:48)
[2016-07-03] MEDS: levETIRAcetam 250 MG TAB PO SCH ×2 (08:17→19:43)
[2016-07-03] MEDS: METOPROLOL TARTRATE 25 MG TAB PO SCH ×2 (08:18→19:47)
[2016-07-03] MEDS: predniSONE 20 MG TAB PO SCH ×2 (08:18→19:48)
[2016-07-03] MEDS ORDERED: SODIUM CHLOR 0.9% 1000 ML INJ 1,000 ML IV ONE ×2 (09:15→09:30)
[2016-07-03] MEDS ORDERED: DEXMEDETOMIDINE INJ 50 ML IV SCH (09:15)
--- NOTE | 2016-07-03 09:29 | HHI.CCPN ---
Subjective Remarks/Hospital Course 07/02: Generalized seizures, refractory to versed and ativan, requiring intubation. 07/03: No more seizure activity and EEG quiet. Discussed with Primary Service and his . Patient's nausea is refractory to zofran. Will try phenergan, but hopefully it won't lower his seizure threshold. Objective Vital Signs Date Time Temp Pulse Resp B/P Pulse Ox O2 Delivery O2 Flow Rate FiO2 07/03/16 08:27 100 40 07/03/16 04:00 98.7 86 20 109/71 07/02/16 19:00 Mechanical Ventilator 07/02/16 10:00 4 Intake and Output 07/02/16 07/02/16 07/03/16 08:00 16:00 00:00 Intake Total 961 ml 1733 ml Output Total 175 ml 815 ml Balance 786 ml 918 ml Result Diagram: 07/03/16 0424 07/03/16 0424 Other Results Microbiology Date/Time Procedure Status Source Growth 07/02/16 04:50 Influenza Types A,B Antigen (TOD) - Final Complete Nasal Aspirate NEGATIVE FOR FLU A AND B ANTIGEN.... Laboratory Tests Test 07/02/16 12:35 Blood Gas Puncture Site RT RADIAL Blood Gas Patient Temperature 98.6 Blood Gas HCO3 17 mmol/L (22-26) Blood Gas Base Excess -9.3 mmol/L (-2-2) Blood Gas Oxygen Saturation 95 % (90-100) Arterial Blood pH 7.22 (7.380-7.420) Arterial Blood Partial 44 mmHg (38-42) Pressure CO2 Arterial Blood Partial 117 mmHg Pressure O2 (61-120) Arterial Blood Oxygen Content 18.3 Vol % (12.0-20.0) Arterial Blood 0.7 % (0-4) Carboxyhemoglobin Arterial Blood Methemoglobin 1.0 % (0-2) Blood Gas Hemoglobin 13.6 G/DL (12.0-16.0) Oxygen Delivery Device VENTILATOR Blood Gas Ventilator Setting SEE COMMENTS Blood Gas Inspired Oxygen 100 % Objective Remarks P 194, BP 146/82, R 17 labored, Sats 100% Head: Normal, atraumatic. Neck: Supple, orally intubated. Lungs: Clear, no wheezes or crackles. Heart: NL S1S2, tachycardia, No JVD. Abdomen: Nondistended, nontender. Benign. Extremities: Warm, well perfused. Skin: Warm, dry. Neuro: Moves 4 limbs spontaneously, nods head. A/P Assessment and Plan Assessment: 1. Generalized Seizures, sustained. 2. Respiratory Failure, Hypoxemic. 3. Lactic Acidosis. 4. Encephalopathy. 5. ALVAREZ. Plan: RESP: PRVC vent mode, wean propofol sedation for seizure control. Start precedex for calm extubation. NEURO: Ativan iv prn breakthrough. AED Keppra per Neurology Service. CV: Labetalol for BP control. Hydrtae. RENAL: Hydrate for ALVAREZ. Confirm correction of lactic acidosis. ID: Cultures for fevers. HEME: Follow WBCs, Hgb GI: NG to LIS. D/C after extubation. : Wang to CBD. D/C when alert. PX: Hold chemical DVT px, protonix for GI. Overall impression: Recent crescendo seizure pattern with past history of seizures per record. No obvious instigating event. He was critically ill with sustained seizures requiring heavy propofol suppression and mechanical ventilation. Attempt to render calm with precedex and extubate. Ciro Bejarano MD Jul 03, 2016 09:28
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
[2016-07-03 11:34] LABS: MAGNESIUM 2.8 MG/DL (1.5-2.5)
[2016-07-03 11:47] LABS: CKMB 0.8 NG/ML (0.5-3.6)
[2016-07-03] MEDS: PIPERACIL-TAZO 3.375 GM PREMIX 50 ML IV SCH ×2 (16:09→22:59)
[2016-07-03] MEDS ORDERED: PROMETHAZINE INJ 25 MG/ML VIAL IM PRN (17:45)
--- NOTE | 2016-07-03 18:06 | HHI.PR ---
Review/Management Daily Summary no seizure recurrence, kidney dysfunction talking, oriented and anxious to go home nystagmus apparently baseline, has visual impairment will obtain mri brain s contrast Subjective Subjective Comments No acute events reported No headache No seizures extubated Active Medications Current Medications Medications (Trade) Dose Ordered Sig/David Route Start Time Stop Time Status Last Admin (NS 1000 ml Inj) 1,000 ml @ 150 mls/hr Q6H40M IV 07/02/16 06:41 07/03/16 08:14 (NS Flush) 2 ml UNSCH PRN FLUSH 07/02/16 06:45 (NS Flush) 2 ml BID FLUSH 07/02/16 09:00 07/03/16 08:12 (Tylenol) 650 mg Q4H PRN PO 07/02/16 06:45 (Zofran Inj) 4 mg Q6H PRN IVP 07/02/16 06:45 07/03/16 13:08 (Heparin Inj) 5,000 units Q8H SQ 07/02/16 08:00 07/03/16 16:09 Naloxone HCl 0.4 mg 0.4 mg UNSCH PRN IV 07/02/16 06:45 (Vancomycin Inj/ NS 500 ml Inj) 515 ml @ 257.5 mls/ hr Q12H IV 07/02/16 12:00 07/03/16 11:53 ([place] 5-325 Mg) 1 tab Q4H PRN PO 07/02/16 10:30 ([place] 5-325 Mg) 2 tab Q4H PRN PO 07/02/16 10:30 (Apresoline) 10 mg Q6HR PRN PO 07/02/16 10:30 (Lopressor) 25 mg BID PO 07/03/16 09:00 07/03/16 08:18 (Deltasone) 20 mg BID PO 07/03/16 09:00 07/03/16 08:18 Chlorhexidine Gluconate 15 ml 15 ml BID@08,20 MT 07/02/16 20:00 07/03/16 08:14 (Diprivan 1000 Mg/100ml Inj) 100 ml @ 0 mls/hr TITRATE IV 07/02/16 12:15 07/03/16 08:58 (Ativan Inj) 2 mg Q15M PRN IV PUSH 07/02/16 12:15 07/02/16 13:30 (Morphine Inj) 4 mg Q3H PRN IV PUSH 07/02/16 13:00 07/03/16 01:25 Labetalol HCl 20 mg 20 mg Q4H PRN IV PUSH 07/02/16 13:00 (Keppra Inj/NS Inj) 107.5 ml @ 410 mls/hr Q12H IV 07/02/16 20:00 07/03/16 08:17 Levetriacetam 750 mg 750 mg Q12H PO 07/02/16 20:00 Dexmedetomidine HCl 50 ml @ 0 mls/hr TITRATE IV 07/03/16 09:15 07/03/16 09:28 (Zosyn 3.375 Gm Premix) 50 ml @ 200 mls/hr Q6H IV 07/03/16 17:00 07/03/16 16:09 (Phenergan Inj) 25 mg Q4H PRN IM 07/03/16 17:45 UNV Allergies Allergies Coded Allergies Latex (Verified Allergy, Intermediate, RASH "ONLY IF I WEAR THE GLOVES", ) Lisinopril (Verified Allergy, Intermediate, cough, 07/02/16) Darvocet-N 100 (Verified Allergy, Mild, "MY FACE BREAKS OUT WITH WHELPS", 07/02) *MDRO Multi-Drug Resistant Organism (Verified Adverse Reaction, Unknown, MRSA , 07/03/16) Exam I&O / VS 07/02/16 07/02/16 07/03/16 15:00 23:00 07:00 Intake Total 961 ml 1733 ml 1651 ml Output Total 175 ml 815 ml 195 ml Balance 786 ml 918 ml 1456 ml IV Total 961 ml 1733 ml 1651 ml Output Urine Total 175 ml 725 ml 195 ml Gastric Drainage Total 90 ml 0 ml # Bowel Movements 1 Vital Signs Date Time Temp Pulse Resp B/P Pulse Ox O2 Delivery O2 Flow Rate FiO2 07/03/16 12:00 98.9 94 25 133/80 100 07/03/16 11:35 100 Nasal Cannula 25 07/03/16 11:02 100 50 07/03/16 11:01 50 07/03/16 10:55 50 07/03/16 08:35 100 Mechanical Ventilator 40 07/03/16 08:27 100 40 07/03/16 08:00 50 07/03/16 08:00 98.4 79 20 109/69 100 07/03/16 08:00 100 Mechanical Ventilator 50 07/03/16 04:49 100 50 07/03/16 04:00 98.7 86 20 109/71 100 07/03/16 04:00 50 07/03/16 01:30 20 07/03/16 01:15 100 60 07/03/16 00:00 60 07/03/16 00:00 98.1 80 20 123/82 100 07/02/16 21:28 100 70 07/02/16 20:00 80 07/02/16 20:00 98.6 77 20 132/90 100 07/02/16 19:00 100 Mechanical Ventilator 80 07/02/16 18:05 100 80 Objective Radiology Results Last [address] Angiography 07/02/16 0549 Signed Impressions: Service Date/Time: Saturday, July 02, 2016 07:05 - CONCLUSION: 1. Diffuse bilateral airspace disease/ground glass densities, likely infiltrate. 2. No evidence for pulmonary embolism. Polo Gallardo MD Chest X-Ray 07/02/16 0434 Signed Impressions: Service Date/Time: Saturday, July 02, 2016 05:01 - CONCLUSION: No acute infiltrates. Stable examination. Dinh Frias MD Head CT 07/02/16 0000 Signed Impressions: Service Date/Time: Saturday, July 02, 2016 04:42 - CONCLUSION: Stable and unremarkable CT brain compared to the prior exam. Dinh Frias MD Chest X-Ray 07/02/16 0000 Signed Impressions: Service Date/Time: Saturday, July 02, 2016 12:05 - CONCLUSION: 1. Endotracheal tube in appropriate position with tip measuring approximately 6 cm from the evert. 2. Persistent diffuse bilateral airspace opacity with consolidation in the medial right midlung zone. Gokul Blancas MD Micro and Labs Laboratory Tests Test 07/02/16 07/03/16 07/03/16 07/03/16 23:38 04:24 06:54 10:58 Troponin I 0.03 0.03 White Blood Count 14.3 Red Blood Count 3.91 Hemoglobin 11.9 Hematocrit 35.7 Mean Corpuscular Volume 91.3 Mean Corpuscular Hemoglobin 30.5 Mean Corpuscular Hemoglobin 33.4 Concent Red Cell Distribution Width 13.7 Platelet Count 221 Mean Platelet Volume 8.2 Neutrophils (%) (Auto) 86.3 Lymphocytes (%) (Auto) 8.3 Monocytes (%) (Auto) 5.3 Eosinophils (%) (Auto) 0.0 Basophils (%) (Auto) 0.1 Neutrophils # (Auto) 12.3 Lymphocytes # (Auto) 1.2 Monocytes # (Auto) 0.8 Eosinophils # (Auto) 0.0 Basophils # (Auto) 0.0 CBC Comment DIFF FINAL Differential Comment Sickle Cell Screen NEG Sodium Level 145 Potassium Level 4.3 Chloride Level 111 Carbon Dioxide Level 21.6 Anion Gap 12 Blood Urea Nitrogen 27 Creatinine 3.06 Estimat Glomerular Filtration 28 Rate Random Glucose 117 Calcium Level 7.9 Total Bilirubin 0.8 Aspartate Amino Transf 25 (AST/SGOT) Alanine Aminotransferase 23 (ALT/SGPT) Alkaline Phosphatase 59 Total Creatine Kinase 451 390 Creatine Kinase MB 1.0 0.8 Creatine Kinase MB % 0.2 0.2 Total Protein 5.8 Albumin 3.0 Nasal Screen MRSA (PCR) NEGATIVE Phosphorus Level 4.0 Magnesium Level 2.8 Test 07/03/16 16:31 Lactic Acid Level 1.1 Date/Time Procedure Status Source Growth 07/02/16 04:50 Influenza Types A,B Antigen (TOD) - Final Complete Nasal Aspirate NEGATIVE FOR FLU A AND B ANTIGEN.... 07/02/16 04:50 Aerobic Blood Culture - Preliminary Resulted Blood Peripheral NO GROWTH IN 1 DAY 07/02/16 04:50 Anaerobic Blood Culture - Preliminary Resulted Blood Peripheral NO GROWTH IN [address] MD Jul 03, 2016 18:06
[2016-07-04] VITALS (8 sets, daily range): BP systolic 161–181; BP diastolic 89–101; PULSE 56–82; RESP 18–27; TEMP 97.8–98.7; O2SAT 95–100
[2016-07-04] MEDS: VANCOMYCIN INJ 1,500 MG in SODIUM CHLORID 0.9% 500 ML INJ 500 ML IV SCH (01:39)
[2016-07-04] MEDS: HEPARIN SODIUM - SQ 10,000 UNITS/ML VIAL SQ SCH ×4 (01:39→19:45)
[2016-07-04 04:37] LABS: BASOPHIL % 0.1 % (0.0-2.0); HEMATOCRIT 33.6 % (39.0-51.0); HEMO FLAGS DIFF FINAL; LYMPH % 6.1 % (9.0-44.0); LYMPHOCYTE # 0.8 TH/MM3 (1.0-4.8); MEAN CELL VOLUME 93.5 FL (80.0-100.0); MEAN CORPUSCULAR HEMOGLOBIN 31.3 PG (27.0-34.0); MEAN CORPUSCULAR HGB CONC 33.5 % (32.0-36.0); NEUT % 85.8 % (16.0-70.0); PLATELET COUNT 195 TH/MM3 (150-450); RED CELL DISTRIBUTION WIDTH 13.9 % (11.6-17.2); WHITE BLOOD COUNT 12.8 TH/MM3 (4.0-11.0)
[2016-07-04 04:54] LABS: BICARBONATE 22.7 MEQ/L (21.0-32.0); POTASSIUM 4.7 MEQ/L (3.5-5.1)
[2016-07-04] MEDS: PIPERACIL-TAZO 3.375 GM PREMIX 50 ML IV SCH ×4 (05:15→22:36)
[2016-07-04] MEDS: SODIUM CHLOR 0.9% 1000 ML INJ 1,000 ML IV SCH ×3 (05:16→17:06)
[2016-07-04] MEDS: levETIRAcetam INJ 750 MG in SODIUM CHLORIDE 0.9% INJ 100 ML IV SCH ×2 (08:00→19:44)
[2016-07-04] MEDS: CHLORHEXIDINE 0.12% (ORAL KIT) 15 ML CUP MT SCH ×2 (08:00→19:44)
[2016-07-04] MEDS: predniSONE 20 MG TAB PO SCH ×2 (08:24→19:38)
[2016-07-04] MEDS: SODIUM CHLORIDE 0.9% FLUSH 5 ML FLUSH FLUSH SCH ×2 (08:24→19:45)
[2016-07-04] MEDS: METOPROLOL TARTRATE 25 MG TAB PO SCH ×2 (08:24→19:38)
[2016-07-04] MEDS: levETIRAcetam 250 MG TAB PO SCH ×2 (08:24→19:38)
[2016-07-04] MEDS: hydrALAZINE HCL 10 MG TAB PO PRN ×2 (08:39→14:55)
[2016-07-04] MEDS ORDERED: Vancomycin Consult Pharmacy 1 EA OTHER SCH (09:00)
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
[2016-07-04] MEDS ORDERED: SODIUM CHLOR 0.9% 1000 ML INJ 1,000 ML IV ONE (09:15)
[2016-07-04 09:46] LABS: BACTERIA, URINE OCC /hpf; BLOOD, URINE MOD (NEG); GLUCOSE,URINE NEG (NEG); KETONE, URINE NEG (NEG); MUCUS URINE FEW /lpf (OCC); NITRITE,URINE NEG (NEG); URINE COLOR LIGHT-YELLOW (YELLW/STRAW)
--- NOTE | 2016-07-04 12:24 | HHI.CCPN ---
Subjective Remarks/Hospital Course 07/02: Generalized seizures, refractory to versed and ativan, requiring intubation. 07/03: No more seizure activity and EEG quiet. Discussed with Primary Service and his . Patient's nausea is refractory to zofran. Will try phenergan, but hopefully it won't lower his seizure threshold. 07/04: No seizures. ATN has developed. Will check urine lytes, osmolality. Objective Vital Signs Date Time Temp Pulse Resp B/P Pulse Ox O2 Delivery O2 Flow Rate FiO2 07/04/16 08:00 98.7 82 18 169/101 100 07/04/16 07:47 Nasal Cannula 2.00 07/03/16 11:02 50 Intake and Output 07/03/16 07/03/16 07/04/16 08:00 16:00 00:00 Intake Total 1651 ml 2598 ml 1007 ml Output Total 195 ml 510 ml 725 ml Balance 1456 ml 2088 ml 282 ml Result Diagram: 07/04/16 0333 07/04/16 0333 Other Results Microbiology Date/Time Procedure Status Source Growth 07/02/16 04:50 Influenza Types A,B Antigen (TOD) - Final Complete Nasal Aspirate NEGATIVE FOR FLU A AND B ANTIGEN.... Objective Remarks P 82, BP 169/82, R 14 labored, Sats 100% Head: Normal, atraumatic. Neck: Supple, no stridor or obstruction. Lungs: Clear, no wheezes or crackles. Heart: NL S1S2, tachycardia, No JVD. Abdomen: Nondistended, nontender. Benign. BS active. Extremities: Warm, well perfused. Skin: Warm, dry. Neuro: Moves 4 limbs spontaneously, nods head. Alert, conversant. A/P Assessment and Plan Assessment: 1. Generalized Seizures, sustained. 2. Respiratory Failure, Hypoxemic. 3. Lactic Acidosis. 4. Encephalopathy. 5. ALVAREZ. Plan: RESP: Precedex off for 16 hours. NEURO: Ativan iv prn breakthrough. AED Keppra per Neurology Service. CV: Labetalol for BP control. Hydrate. RENAL: Hydrate for ALVAREZ. No OLIVIA-I. Urine lytes and osmolality ID: Cultures for fevers. HEME: Follow WBCs, Hgb GI: NG to LIS. D/C after extubation. : Wang to CBD. D/C when alert. PX: Hold chemical DVT px, protonix for GI. Overall impression: Breathing comfortably. ATN concerning. Discussed with primary service. Transfer OK. Ciro Bejarano MD Jul 04, 2016 12:24
[2016-07-04] MEDS: cloNIDine HCL 0.1 MG TAB PO PRN ×2 (15:51→22:36)
--- NOTE | 2016-07-04 16:32 | RADRPT ---
EXAM DATE/TIME: 07/04/2016 16:06 [facility] COMPARISON: CT BRAIN W/O CONTRAST, July 02, 2016, 4:42. INDICATIONS : Seizures. MEDICAL HISTORY : Seizures. SURGICAL HISTORY : Tonsillectomy. Right wrist. ENCOUNTER: Subsequent ACUITY: 2 day PAIN SCORE: 0/10 LOCATION: cranial TECHNIQUE: Multiplanar, multisequence MRI of the brain was performed without contrast. FINDINGS: CEREBRUM: The ventricles are normal for age. No evidence of midline shift, mass lesion, hemorrha ge or acute infarction. No extraaxial fluid collections are seen. The pituitary gland and suprasell ar cistern are normal in configuration. WHITE MATTER: No significant signal abnormalities are seen in the white matter. POSTERIOR FOSSA: The cerebellum and brainstem are intact. The 4th ventricle is midline. The cere bellopontine angle is unremarkable. The cerebellar tonsils are normal in position. DIFFUSION IMAGING: No focal areas of restricted diffusion are seen. No evidence of acute infarct ion. EXTRACRANIAL: The visualized portions of the orbits are normal. There is mucoperiosteal thickenin g identified within the left maxillary sinus. CONCLUSION: No evidence of intracranial abnormality. Left maxillary sinus disease. Dianna Baldwin MD on July 04, 2016 at 16:27 Board Certified Radiologist. This report was verified electronically.
--- NOTE | 2016-07-04 16:48 | PD.CONS ---
HPI Service Nephrology Consult Requested By Reason for Consult ALVAREZ Primary Care Physician Angel Luis Mayfield D, MD History of Present Illness Mr. Lang is a 36 year old who was admitted on the after he suffered a seizure at home witnessed by his . This was his second episode of seizure. He had a seizure in January of last year. At that time, he was not placed on antiepileptic medication. After he was admitted to ICU, he proceeded to have another seizure. He was intubated for airway protection. He has been seen by neurology and placed on Kepra. He had CT angiogram on 07/02. His creatinine was 1.6 in 01/22, it was 1.34 on arrival. It has progressively increased to 4.16 today. He appears to be non oliguric. He is hypertensive. Review of Systems Constitutional: COMPLAINS OF: Fatigue Eyes: DENIES: Blurred vision, Diplopia Cardiovascular: DENIES: Chest pain, Palpitations, Syncope, Dyspnea on Exertion Gastrointestinal: DENIES: Abdominal pain Neurologic: DENIES: Abnormal gait, Headache Past Family Social History Allergies: Coded Allergies: Latex (Verified Allergy, Intermediate, RASH "ONLY IF I WEAR THE GLOVES", ) Lisinopril (Verified Allergy, Intermediate, cough, 07/02/16) OLIVIA inhibitor cough Darvocet-N 100 (Verified Allergy, Mild, "MY FACE BREAKS OUT WITH WHELPS", 07/02/16) *MDRO Multi-Drug Resistant Organism (Verified Adverse Reaction, Unknown, MRSA, 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 Active Ordered Medications Current Medications Medications (Trade) Dose Ordered Sig/David Route Start Time Stop Time Status Last Admin (NS 1000 ml Inj) 1,000 ml @ 150 mls/hr Q6H40M IV 07/02/16 06:41 07/04/16 10:39 (NS Flush) 2 ml UNSCH PRN FLUSH 07/02/16 06:45 (NS Flush) 2 ml BID FLUSH 07/02/16 09:00 07/04/16 08:24 (Tylenol) 650 mg Q4H PRN PO 07/02/16 06:45 (Zofran Inj) 4 mg Q6H PRN IVP 07/02/16 06:45 07/03/16 13:08 (Narcan Inj) 0.4 mg UNSCH PRN IV 07/02/16 06:45 (Ephraim 5-325 Mg) 1 tab Q4H PRN PO 07/02/16 10:30 (Ephraim 5-325 Mg) 2 tab Q4H PRN PO 07/02/16 10:30 (Apresoline) 10 mg Q6HR PRN PO 07/02/16 10:30 07/04/16 14:55 (Lopressor) 25 mg BID PO 07/03/16 09:00 07/04/16 08:24 (Deltasone) 20 mg BID PO 07/03/16 09:00 07/04/16 08:24 Chlorhexidine Gluconate 15 ml 15 ml BID@08,20 MT 07/02/16 20:00 07/03/16 08:14 (Diprivan 1000 Mg/100ml Inj) 100 ml @ 0 mls/hr TITRATE IV 07/02/16 12:15 07/03/16 08:58 (Ativan Inj) 2 mg Q15M PRN IV PUSH 07/02/16 12:15 07/02/16 13:30 (Morphine Inj) 4 mg Q3H PRN IV PUSH 07/02/16 13:00 07/03/16 01:25 Labetalol HCl 20 mg 20 mg Q4H PRN IV PUSH 07/02/16 13:00 (Keppra Inj/NS Inj) 107.5 ml @ 410 mls/hr Q12H IV 07/02/16 20:00 07/03/16 19:48 Levetriacetam 750 mg 750 mg Q12H PO 07/02/16 20:00 07/04/16 08:24 Dexmedetomidine HCl 50 ml @ 0 mls/hr TITRATE IV 07/03/16 09:15 07/03/16 09:28 (Zosyn 3.375 Gm Premix) 50 ml @ 200 mls/hr Q6H IV 07/03/16 17:00 07/04/16 11:02 (Phenergan Inj) 25 mg Q4H PRN IM 07/03/16 17:45 07/03/16 18:26 (Heparin Inj) 5,000 units Q12H SQ 07/04/16 20:00 (Catapres) 0.1 mg Q6H PRN PO 07/04/16 16:00 07/04/16 15:51 Family History non contributory Social History , has 2 children, smokes 1 ppd. 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 Physical Exam Vital Signs Vital Signs Date Time Temp Pulse Resp B/P Pulse Ox O2 Delivery O2 Flow Rate FiO2 07/04/16 16:00 98.7 82 27 181/101 100 07/04/16 12:00 98.7 82 18 166/99 100 07/04/16 08:00 98.7 82 18 169/101 100 07/04/16 07:47 95 Nasal Cannula 2.00 07/04/16 07:00 100 Nasal Cannula 2.00 07/04/16 04:00 98.7 56 22 176/93 100 07/04/16 00:00 98.7 67 25 162/89 100 07/03/16 20:00 98.5 56 20 139/77 100 07/03/16 19:15 98 Nasal Cannula 2.00 07/03/16 19:05 95 Nasal Cannula 2.00 Physical Exam GENERAL: alert, oriented. SKIN: Warm and dry. HEAD: Normocephalic. EYES: No scleral icterus. No injection or drainage. NECK: Supple, trachea midline. No JVD or lymphadenopathy. CARDIOVASCULAR: Regular rate and rhythm without murmurs, gallops, or rubs. RESPIRATORY: Breath sounds equal bilaterally. No accessory muscle use. GASTROINTESTINAL: Abdomen soft, non-tender, nondistended. MUSCULOSKELETAL: No cyanosis, or edema. BACK: Nontender without obvious deformity. No CVA tenderness. Laboratory Laboratory Tests Test 07/04/16 07/04/16 03:33 09:19 White Blood Count 12.8 Red Blood Count 3.60 Hemoglobin 11.3 Hematocrit 33.6 Mean Corpuscular Volume 93.5 Mean Corpuscular Hemoglobin 31.3 Mean Corpuscular Hemoglobin 33.5 Concent Red Cell Distribution Width 13.9 Platelet Count 195 Mean Platelet Volume 8.7 Neutrophils (%) (Auto) 85.8 Lymphocytes (%) (Auto) 6.1 Monocytes (%) (Auto) 8.0 Eosinophils (%) (Auto) 0.0 Basophils (%) (Auto) 0.1 Neutrophils # (Auto) 11.0 Lymphocytes # (Auto) 0.8 Monocytes # (Auto) 1.0 Eosinophils # (Auto) 0.0 Basophils # (Auto) 0.0 CBC Comment DIFF FINAL Differential Comment Sodium Level 147 Potassium Level 4.7 Chloride Level 115 Carbon Dioxide Level 22.7 Anion Gap 9 Blood Urea Nitrogen 40 Creatinine 4.16 Estimat Glomerular Filtration 20 Rate Random Glucose 103 Calcium Level 8.0 Urine Color LIGHT-YELLOW Urine Turbidity CLEAR Urine pH 5.0 Urine Specific [place] 1.006 Urine Protein NEG Urine Glucose (UA) NEG Urine Ketones NEG Urine Occult Blood MOD Urine Nitrite NEG Urine Bilirubin NEG Urine Urobilinogen LESS THAN 2.0 Urine Leukocyte Esterase NEG Urine RBC 11 Urine WBC 3 Urine Bacteria OCC Urine Mucus FEW Microscopic Urinalysis Comment Urine Osmolality 226 Urine Random Creatinine 43.1 Urine Random Sodium 55 Date/Time Procedure Status Source Growth 07/02/16 04:50 Influenza Types A,B Antigen (TOD) - Final Complete Nasal Aspirate NEGATIVE FOR FLU A AND B ANTIGEN.... 07/02/16 04:50 Aerobic Blood Culture - Preliminary Resulted Blood Peripheral NO GROWTH IN 2 DAYS 07/02/16 04:50 Anaerobic Blood Culture - Preliminary Resulted Blood Peripheral NO GROWTH IN 2 DAYS Result Diagram: 07/04/16 0333 07/04/16 0333 Assessment and Plan Problem List: (1) Acute kidney injury Plan: Likely has developed ATN. IV administration of iodinated contrast on could have contributed to it. Continue IVF. UA did reveal hematuria, may be due to urethral trauma, repeat UA. Monitor renal function. Obtain renal US. Avoid nephrotoxic agents. (2) Seizure Plan: Neurology has seen the patient. On Keppra. (3) Essential hypertension Plan: BP is high. On Lopressor. Add Amlodipine. Assessment and Plan Thanks for the consult. I will follow. Alonso Diaz MD Jul 04, 2016 16:48
[2016-07-04] MEDS ORDERED: ENALAPRILAT 1.25 MG/ML VIAL IV PRN (19:00)
[2016-07-04] MEDS: hydrALAZINE HCL 20 MG/ML VIAL IV PRN (19:38)
--- NOTE | 2016-07-04 23:43 | RADRPT ---
EXAM DATE/TIME: 07/04/2016 22:37 [facility] COMPARISON: No previous studies available for comparison. INDICATIONS : Increased BUN/creatinine. MEDICAL HISTORY : Hypertension. Seizures. Migraines. Sleep apnea. MRSA. SURGICAL HISTORY : Tonsillectomy. ORIF right wrist. ENCOUNTER: Initial ACUITY: 1 day PAIN SCORE: 3/10 LOCATION: Bilateral flank MEASUREMENTS: RIGHT KIDNEY: 11.4 x 5.9 x 5.9 cm LEFT KIDNEY: 11.9 x 5.1 x 6.6 cm FINDINGS: RIGHT KIDNEY: Renal cortex is normal in thickness and slightly increased echotexture. No hydronephrosis, stone, or mass. LEFT KIDNEY: Renal cortex is normal in thickness and slightly increased echotexture. No hydronephrosis, stone, or mass. BLADDER: Within normal limits given the degree of distension. CONCLUSION: 1. Mild increased echotexture of the bilateral kidneys is noted and can be seen with medical renal di sease. 2. There is trace perinephric fluid on the right. Derian Pierre MD on July 04, 2016 at 23:41 Board Certified Radiologist. This report was verified electronically.
[2016-07-05] VITALS (9 sets, daily range): BP systolic 128–190; BP diastolic 70–112; PULSE 51–90; RESP 10–28; TEMP 97.5–98.7; O2SAT 96–100
[2016-07-05] MEDS: SODIUM CHLOR 0.9% 1000 ML INJ 1,000 ML IV SCH ×2 (01:21→08:01)
[2016-07-05] MEDS: hydrALAZINE HCL 20 MG/ML VIAL IV PRN ×2 (03:00→10:18)
[2016-07-05] MEDS ORDERED: hydrALAZINE HCL 10 MG TAB PO PRN (04:00)
[2016-07-05] MEDS: PIPERACIL-TAZO 3.375 GM PREMIX 50 ML IV SCH ×4 (05:00→23:00)
[2016-07-05 05:04] LABS: AUTOMATED NEUTROPHIL # 10.8 TH/MM3 (1.8-7.7); HEMATOCRIT 36.6 % (39.0-51.0); HEMO FLAGS DIFF FINAL; LYMPH % 8.6 % (9.0-44.0); LYMPHOCYTE # 1.1 TH/MM3 (1.0-4.8); MEAN CELL VOLUME 92.6 FL (80.0-100.0); MEAN CORPUSCULAR HEMOGLOBIN 30.4 PG (27.0-34.0); MEAN CORPUSCULAR HGB CONC 32.9 % (32.0-36.0); MONO % 8.8 % (0.0-8.0); NEUT % 82.6 % (16.0-70.0); PLATELET COUNT 194 TH/MM3 (150-450); RED BLOOD COUNT 3.95 MIL/MM3 (4.50-5.90); RED CELL DISTRIBUTION WIDTH 13.7 % (11.6-17.2); WHITE BLOOD COUNT 13.1 TH/MM3 (4.0-11.0)
[2016-07-05 05:19] LABS: BLOOD, URINE NEG (NEG); GLUCOSE,URINE NEG (NEG); KETONE, URINE NEG (NEG); NITRITE,URINE NEG (NEG); PH, URINE 5.5 (5.0-8.5); URINE COLOR COLORLESS (YELLW/STRAW)
[2016-07-05 05:26] LABS: BICARBONATE 21.3 MEQ/L (21.0-32.0); MAGNESIUM 2.6 MG/DL (1.5-2.5); POTASSIUM 4.3 MEQ/L (3.5-5.1)
[2016-07-05 05:27] LABS: COMMENT (UR) CULT NOT INDICATED; CULTURE IF INDICATED CULT NOT INDICATED
[2016-07-05] MEDS ORDERED: cloNIDine HCL 0.2 MG TAB PO ONE (05:45)
[2016-07-05] MEDS: CHLORHEXIDINE 0.12% (ORAL KIT) 15 ML CUP MT SCH ×2 (08:00→20:00)
[2016-07-05] MEDS: levETIRAcetam INJ 750 MG in SODIUM CHLORIDE 0.9% INJ 100 ML IV SCH ×2 (08:00→20:00)
--- NOTE | 2016-07-05 08:36 | HHI.FPPN ---
Subjective Remarks Patient seen this morning. Apparently had SBP up to 200s overnight, not responding to PRN hydralazine. Resident team was paged and BP decreased <180 with PRN clonidine and vasotec. Patient denies any CARRANZA or vision change associated with the episode. No chest pain. He endorses mild anxiety. Denies history of alcohol or illicit substance use at home. Vitals this AM show SBP in the 150s. Other vitals WNL. Frantz states neck and right shoulder pain significantly improved. Able to move around more yesterday. Took a shower. Breathing is at baseline. No cough. Denies any new numbness or weakness in the extremities. (Eduardo Baron MD R3) Objective Vitals Vital Signs Date Time Temp Pulse Resp B/P Pulse Ox O2 Delivery O2 Flow Rate FiO2 07/05/16 04:00 98.7 90 28 168/91 99 07/05/16 00:00 97.8 51 26 160/91 99 07/04/16 20:00 97.8 77 25 161/95 100 07/04/16 19:43 100 07/04/16 19:00 100 Room Air 07/04/16 16:00 98.7 82 27 181/101 100 07/04/16 12:00 98.7 82 18 166/99 100 I/O 07/04/16 07/04/16 07/04/16 07/05/16 07/05/16 07/05/16 07:00 15:00 23:00 07:00 15:00 23:00 Intake Total 1371 ml 2770 ml 1658 ml 917 ml Output Total 600 ml 700 ml 600 ml 1100 ml Balance 771 ml 2070 ml 1058 ml -183 ml Intake Oral 1440 ml 560 ml 240 ml IV Total 1371 ml 1330 ml 1098 ml 677 ml Output Urine Total 600 ml 700 ml 600 ml 1100 ml # Bowel Movements 1 1 (Eduardo Baron MD R3) Result Diagram: 07/05/1641707/05/16417 Objective Remarks Gen: well appearing, AA male patient. Sating 99% on room air. Lying down in bed. In NAD. Head: Normocephalic. Atraumatic. HEENT: NC/AT. No meningeal signs. PERRLA. EOMI. Subconjunctival hemorrhage on medial and lateral aspect of both eyes. TM meredith, translucent, non-erythematous. Anterior nasal vaults clear. Dried blood in OP. No laceration or other lesion visualized. Cardiovascular: Regular rate and rhythm. No murmurs, rubs or gallops. Respiratory: non-labored. CTAB. No adventitious sounds. Abdomen: Soft, nondistended. No peritoneal signs. Musculoskeletal: No gross deformities. No edema. No calf tenderness. Negative Homero's sign. Skin: No obvious rashes or erythema. Neuro: CN II-XII grossly intact. Motor and sensory grossly intact. Psych: Appropriate mood and affect. (Eduardo Baron MD R3) A/P Assessment and Plan 36-year-old male with past medical history significant for hypertension and previous seizure times one in January 2016 presented to the emergency department status post seizure activity. He was found to be hypoxic and had another seizure while hospitalized requiring intubation and sedation. Course complicated by respiratory distress requiring intubation (07/02-07/03) and ARF ( Cr to 4s). Now with improving renal function and elevated blood pressure overnight. Discharge Planning Likely DC in next 1-2 days. Plan for transfer to med-surg floor (apparently still waiting for a bed, per nursing) Will discuss with Dr. Khanna. (Eduardo Baron MD R3) Attending Attestation Patient seen and examined. Case reviewed and discussed with the resident team. Agree with plan of care as discussed with me and documented in the resident note. he has had high BPs going back at least 10 years. He has not taken his BP meds at home as directed in the past but states he will be better about taking his meds regularly. Explained that HTN over time can give people CVAs, MIs and renal failure among other things. He may be considered for a work up of secondary HTN as an outpt if he continues to be difficult to control. He has a history of sleep apnea but after weight loss has improved. However, sleep apnea is known for giving resistant HTN and may be contributing (Patricia Khanna MD) Problem List: (1) Seizure Status: Acute Plan: One seizure months ago. Now 2 day of admission. believes this is related to his previous accident. -seizure precautions -cont keppra -ativan PRN -MRI brain neg -neuro consulted. Appreciate recs. -PT recommending rehab. Will consult CM. (2) Pneumonia Status: Acute Plan: Likely viral, given diffuse pattern on CXR and CT. ?aspiration history. -no significant leukocytosis from today's labs -cont zosyn (07/02-) at renal dose of 3.375g q6. Plan 7 day course. Vanc (07/02-) DCed, given concern for worsening renal failure. Restart if clinical deterioration. Consult pharmacy. -cont prednisone 20 mg BID -QID acapella for CPT. Incentive spirometry. (3) Renal failure Status: Acute Plan: Improving. Cr down to 2.8 today compared to 4 yesterday. Suspect combination of IV contast induced nephropathy and vancomycin effect -CK unremarkable -electrolytes WNL. No signs of volume overload. -UA yesterday did show some blood, clear this morning -cont NS at 150 mls/hr -hold nephrotoxic agents. Consult pharmacy for abx, as above. -renal u/s shows evidence of medical renal dz -nephrology consulted. Recommend norvasc for elevated BP. Will start. Monitor renal function. (4) Essential hypertension Status: Chronic Plan: SBP now in the 150s. Asymptomatic. Cuff too tight in the ED apparently. -cont metoprolol from home -add amlodipine 10mg daily -apparently responded better to clonidine than hydralazine PRN. Will start clonidine PRN for SBP >160. Keep PRN hydralazine, as well. (5) Back pain Status: Chronic Plan: Improving. Per his , he has had disc problems and pain in his upper right back and arm since his accident. 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
[2016-07-05] MEDS: METOPROLOL TARTRATE 25 MG TAB PO SCH ×2 (08:38→20:51)
[2016-07-05] MEDS: HEPARIN SODIUM - SQ 10,000 UNITS/ML VIAL SQ SCH ×2 (08:38→20:00)
[2016-07-05] MEDS: predniSONE 20 MG TAB PO SCH ×2 (08:38→20:50)
[2016-07-05] MEDS: SODIUM CHLORIDE 0.9% FLUSH 5 ML FLUSH FLUSH SCH ×2 (08:39→21:00)
[2016-07-05] MEDS: levETIRAcetam 250 MG TAB PO SCH ×2 (08:51→20:49)
[2016-07-05] MEDS ORDERED: amLODIPine BESYLATE 5 MG TAB PO SCH (09:00)
[2016-07-05] MEDS: cloNIDine HCL 0.1 MG TAB PO PRN ×2 (10:56→23:00)
[2016-07-05] MEDS: FLUTICASONE PROPIONATE 50 MCG/ACT 16 GM NASAL SPRAY NASAL SCH (13:42)
[2016-07-05] MEDS: OXYMETAZOLINE HCL 0.05% 15 ML NASAL SPRAY NASAL SCH ×2 (13:42→20:51)
--- NOTE | 2016-07-05 13:50 | HHI.NPPN ---
Subjective General Problems: Hypertension, [place] Acidosis Renal Failure: Acute Interval History Patient is resting. Renal function is better. Very high blood pressures overnight. (Patricia Casiano) Review of Systems General Constitutional: Fatigue (Patricia Casiano) Objective Data Data 07/04/16 07/05/16 19:00 07:00 Intake Total 2770 ml 2575 ml Output Total 700 ml 1700 ml Balance 2070 ml 875 ml Intake Oral 1440 ml 800 ml IV Total 1330 ml 1775 ml Output Urine Total 700 ml 1700 ml # Bowel Movements 1 1 Vital Signs Date Time Temp Pulse Resp B/P Pulse Ox O2 Delivery O2 Flow Rate FiO2 07/05/16 12:43 24 07/05/16 12:00 97.6 61 10 153/96 98 07/05/16 08:42 97 07/05/16 08:00 97.8 62 17 175/96 99 07/05/16 08:00 71 07/05/16 07:00 99 Room Air 07/05/16 04:00 98.7 90 28 168/91 99 07/05/16 00:00 97.8 51 26 160/91 99 07/04/16 20:00 97.8 77 25 161/95 100 07/04/16 19:43 100 07/04/16 19:00 100 Room Air 07/04/16 16:00 98.7 82 27 181/101 100 (Patricia Casiano) -: 07/05/16 0418 07/05/16 0418 Imaging Last 72 hours Impressions Renal Ultrasound 07/04/16 0000 Signed Impressions: Service Date/Time: June 22:37 - CONCLUSION: 1. Mild increased echotexture of the bilateral kidneys is noted and can be seen with medical renal disease. 2. There is trace perinephric fluid on the right. Derian Pierre MD Brain MRI 07/04/16 0000 Signed Impressions: Service Date/Time: June 16:06 - CONCLUSION: No evidence of intracranial abnormality. Left maxillary sinus disease. Dianna Baldwin MD (Patricia Casiano) Physical Exam General Appearance: Well Developed, Well Nourished, Comfortable, Sleeping (Patricia Casiano) Throat Throat Exam: Oral Mucosa [place] & Moist (Patricia Casiano) Pulmonary Resp Exam: Clear Bilaterally, Breath Sounds Equal (Patricia Casiano) Cardiology CV Exam: Regular, Normal Sinus Rhythm, Good Perfusion (Patricia Casiano) Gastrointestinal/Abdomen GI Exam: Soft, Non-Tender, Bowel Sounds Present (Patricia Casiano) Musculoskeletal MS Exam: Joints Intact, Normal Tone (Patricia Casiano) Integumentary Skin Exam: Clear, Warm, Dry, Intact (Patricia Casiano) Extremeties Extremities Exam: No Edema, Pedal Pulses Palpable (Patricia Casiano) Neurologic Neuro Exam: Alert, Awake, Oriented, Speech Clear, Moving All Extremities ( Patricia Casiano) Psychiatric Psych Exam: Appropriate Responses (Patricia Casiano) Assessment/Plan Discussed Condition With: Patient, Relative Assessment Summary: ALVAREZ/Acute Renal Failure Problem List: (1) Acute kidney injury Plan: renal function has improved overnight good urine output, non oliguric ALVAREZ may be contrast induced nephropathy, he received contrast on 07/02; May have developed ATN. no current electrolyte concerns Continue IVF but reduce to 100 cc/hr (0.9%) , taper off and encourage oral nutrition renal US negative UA benign continue current plan, avoid nephrotoxins renal panel in am (2) Seizure Plan: Neurology has seen the patient. On Kera. (3) Essential hypertension Plan: BP high overnight On Norvasc and Lopressor, with PRN hydralazine and clonidine will add standing clonidine order (Patricia Casiano) Plan patient was seen and examined. Agree with above assessment and plan. Renal function has improved. BP control has improved. (Alonso Diaz MD) Patricia Casiano Jul 05, 2016 13:50 Alonso Diaz MD Jul 05, 2016 15:39
[2016-07-05] MEDS: cloNIDine HCL 0.1 MG TAB PO SCH (20:50)
[2016-07-06] VITALS (8 sets, daily range): BP systolic 142–196; BP diastolic 83–117; PULSE 58–68; RESP 18–20; TEMP 97.5–98.3; O2SAT 98–100
[2016-07-06] MEDS: PIPERACIL-TAZO 3.375 GM PREMIX 50 ML IV SCH (04:48)
[2016-07-06] MEDS: cloNIDine HCL 0.1 MG TAB PO PRN (04:48)
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
[2016-07-06] MEDS ORDERED: cloNIDine HCL 0.2 MG TAB PO PRN (06:45)
[2016-07-06 07:26] LABS: BASOPHIL % 0.1 % (0.0-2.0); HEMATOCRIT 34.9 % (39.0-51.0); HEMO FLAGS DIFF FINAL; LYMPH % 10.5 % (9.0-44.0); MEAN CELL VOLUME 92.1 FL (80.0-100.0); MEAN CORPUSCULAR HEMOGLOBIN 31.5 PG (27.0-34.0); MEAN CORPUSCULAR HGB CONC 34.2 % (32.0-36.0); MONO % 8.4 % (0.0-8.0); PLATELET COUNT 190 TH/MM3 (150-450); RED BLOOD COUNT 3.79 MIL/MM3 (4.50-5.90); RED CELL DISTRIBUTION WIDTH 13.5 % (11.6-17.2); WHITE BLOOD COUNT 9.9 TH/MM3 (4.0-11.0)
[2016-07-06] MEDS: levETIRAcetam INJ 750 MG in SODIUM CHLORIDE 0.9% INJ 100 ML IV SCH ×2 (07:42→20:00)
[2016-07-06 07:54] LABS: BICARBONATE 25.3 MEQ/L (21.0-32.0)
[2016-07-06] MEDS: CHLORHEXIDINE 0.12% (ORAL KIT) 15 ML CUP MT SCH ×2 (08:00→20:00)
[2016-07-06] MEDS: HEPARIN SODIUM - SQ 10,000 UNITS/ML VIAL SQ SCH ×2 (08:00→20:00)
[2016-07-06] MEDS: SODIUM CHLORIDE 0.9% FLUSH 5 ML FLUSH FLUSH SCH ×2 (09:00→20:56)
[2016-07-06] MEDS ORDERED: HYDROCHLOROTHIAZIDE 25 MG TAB PO SCH (09:00)
[2016-07-06] MEDS: FLUTICASONE PROPIONATE 50 MCG/ACT 16 GM NASAL SPRAY NASAL SCH (09:00)
[2016-07-06] MEDS: OXYMETAZOLINE HCL 0.05% 15 ML NASAL SPRAY NASAL SCH ×2 (09:00→21:00)
[2016-07-06] MEDS: AMOXICILLIN/CLAVULANATE K 875 MG TAB PO SCH ×2 (09:47→20:55)
[2016-07-06] MEDS: METOPROLOL TARTRATE 25 MG TAB PO SCH ×2 (09:48→20:56)
[2016-07-06] MEDS: levETIRAcetam 250 MG TAB PO SCH ×2 (09:48→20:55)
[2016-07-06] MEDS: cloNIDine HCL 0.1 MG TAB PO SCH ×2 (09:48→20:55)
--- NOTE | 2016-07-06 10:19 | HHI.NPPN ---
Subjective General Problems: Hypertension, [place]atolic Acidosis Renal Failure: Acute Interval History renal function is better. BP is still high. Review of Systems General Constitutional: Fatigue Objective Data Data 07/05/16 07/06/16 19:00 07:00 Intake Total 1324 ml 1440 ml Output Total 1150 ml 2400 ml Balance 174 ml -960 ml Intake Oral 240 ml 1440 ml IV Total 1084 ml Output Urine Total 1150 ml 2400 ml # Bowel Movements 1 Vital Signs Date Time Temp Pulse Resp B/P Pulse Ox O2 Delivery O2 Flow Rate FiO2 07/06/16 08:00 98.3 60 18 169/100 100 07/06/16 06:35 61 182/112 07/06/16 04:11 98.2 67 20 196/117 99 07/05/16 23:00 98.2 56 18 190/112 100 07/05/16 22:10 96 07/05/16 20:06 97.5 62 20 174/99 100 07/05/16 16:15 98.6 71 18 146/84 96 07/05/16 12:43 24 07/05/16 12:00 97.6 61 10 153/96 98 -: 07/06/16 0616 07/06/16 0616 Physical Exam General Appearance: Well Developed, Well Nourished, Comfortable, Sleeping Eyes Eye Remarks reddish conjunctivae Throat Throat Exam: Oral Mucosa [place] & Moist Pulmonary Resp Exam: Clear Bilaterally, Breath Sounds Equal Cardiology CV Exam: Regular, Normal Sinus Rhythm, Good Perfusion Gastrointestinal/Abdomen GI Exam: Soft, Non-Tender, Bowel Sounds Present Musculoskeletal MS Exam: Joints Intact, Normal Tone Integumentary Skin Exam: Clear, Warm, Dry, Intact Extremeties Extremities Exam: No Edema, Pedal Pulses Palpable Neurologic Neuro Exam: Alert, Awake, Oriented, Speech Clear, Moving All Extremities Psychiatric Psych Exam: Appropriate Responses Assessment/Plan Discussed Condition With: Patient, Relative Assessment Summary: ALVAREZ/Acute Renal Failure Problem List: (1) Acute kidney injury Plan: Improvement in renal function. Avoid nephrotoxic agents. (2) Seizure Plan: Neurology has seen the patient. On Keppra. (3) Essential hypertension Plan: BP remains high. It is noted that he is relatively bradycardic: due to clonidine, Labetalol and Metoprolol. HCTZ increased to twice daily: this is not recommended. Consider switching to Chlorthalidone. Continue Amlodipine and Clonidine. Consider addition of OLIVIA inhibitor or ARB. Alonso Diaz MD Jul 06, 2016 10:19
[2016-07-07 00:23] VITALS: BP 169/83; PULSE 60; RESP 17; TEMP 98.4; O2SAT 96
[2016-07-07 04:20] VITALS: BP 170/90; PULSE 59; RESP 17; TEMP 98; O2SAT 98
[2016-07-07 06:18] LABS: BICARBONATE 29.2 MEQ/L (21.0-32.0); POTASSIUM 3.5 MEQ/L (3.5-5.1)
[2016-07-07 06:30] LABS: AUTOMATED NEUTROPHIL # 4.5 TH/MM3 (1.8-7.7); BASOPHIL % 0.5 % (0.0-2.0); EOSINOPHIL # 0.2 TH/MM3 (0-0.4); EOSINOPHIL % 1.8 % (0.0-4.0); HEMATOCRIT 40.4 % (39.0-51.0); HEMO FLAGS DIFF FINAL; LYMPH % 32.5 % (9.0-44.0); LYMPHOCYTE # 2.8 TH/MM3 (1.0-4.8); MEAN CELL VOLUME 91.2 FL (80.0-100.0); MEAN CORPUSCULAR HEMOGLOBIN 30.9 PG (27.0-34.0); MEAN CORPUSCULAR HGB CONC 33.8 % (32.0-36.0); MONO % 13.2 % (0.0-8.0); PLATELET COUNT 239 TH/MM3 (150-450); RED BLOOD COUNT 4.43 MIL/MM3 (4.50-5.90); RED CELL DISTRIBUTION WIDTH 13.3 % (11.6-17.2); WHITE BLOOD COUNT 8.6 TH/MM3 (4.0-11.0)
[2016-07-07 08:00] VITALS: BP 145/85; PULSE 64; RESP 18; TEMP 98.4; O2SAT 100
[2016-07-07] MEDS: CHLORHEXIDINE 0.12% (ORAL KIT) 15 ML CUP MT SCH (08:00)
[2016-07-07] MEDS: HEPARIN SODIUM - SQ 10,000 UNITS/ML VIAL SQ SCH (08:00)
[2016-07-07] MEDS: levETIRAcetam INJ 750 MG in SODIUM CHLORIDE 0.9% INJ 100 ML IV SCH (08:00)
[2016-07-07 08:15] VITALS: O2SAT 98
[2016-07-07] MEDS: METOPROLOL TARTRATE 25 MG TAB PO SCH (08:20)
[2016-07-07] MEDS: levETIRAcetam 250 MG TAB PO SCH (08:20)
[2016-07-07] MEDS: AMOXICILLIN/CLAVULANATE K 875 MG TAB PO SCH (08:20)
[2016-07-07] MEDS: cloNIDine HCL 0.1 MG TAB PO SCH (08:21)
[2016-07-07] MEDS: FLUTICASONE PROPIONATE 50 MCG/ACT 16 GM NASAL SPRAY NASAL SCH (08:21)
[2016-07-07] MEDS: OXYMETAZOLINE HCL 0.05% 15 ML NASAL SPRAY NASAL SCH (08:22)
[2016-07-07] MEDS: SODIUM CHLORIDE 0.9% FLUSH 5 ML FLUSH FLUSH SCH (08:22)
[2016-07-07] MEDS ORDERED: HYDROCHLOROTHIAZIDE 25 MG TAB PO SCH (09:00)
[2016-07-07 09:26] VITALS: BP 147/95; PULSE 63
[2016-07-07] MEDS ORDERED: CLON.2 PO (10:15)
[2016-07-07] MEDS ORDERED: AMLO10 PO (10:15)
[2016-07-07] MEDS ORDERED: AMOX875T2 PO (10:15)
[2016-07-07] MEDS ORDERED: CHLO25TA2 PO (10:15)
[2016-07-07] MEDS ORDERED: LOSA50TA PO (10:15)
--- NOTE | 2016-07-07 10:16 | HHI.DCPOC ---
Discharge Care Plan Diagnosis: (1) Essential hypertension (2) Seizure Goals to Promote Your Health * To prevent worsening of your condition and complications * To maintain your health at the optimal level Directions to Meet Your Goals Take your medications as prescribed Follow your dietary instruction Follow activity as directed Keep your appointments as scheduled Take your immunizations and boosters as scheduled If your symptoms worsen call your PCP, if no PCP go to Urgent Care Center or Emergency Room Smoking is Dangerous to Your Health. Avoid second hand smoke Call the 24-hour hour crisis hotline for domestic abuse at Eduardo Baron MD R3 Jul 07, 2016 10:16
[2016-07-07] MEDS ORDERED: levETIRAcetam 1000 MG INJ 100 ML IV ONE (10:30)
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
[2016-07-07 12:00] VITALS: BP 150/86; PULSE 62; RESP 18; TEMP 97.6; O2SAT 100
[2016-07-07] MEDS ORDERED: KEPP750T PO (12:19)
[2016-07-09] MEDS ORDERED: DICL1GEL TOPICAL (16:00)
[2016-08-05] MEDS ORDERED: AMLO10 PO (16:39)
[2016-08-05] MEDS ORDERED: CHLO25TA2 PO (16:39)
[2016-08-05] MEDS ORDERED: LOSA50TA PO (16:39)
[2016-08-15] MEDS ORDERED: CLON0.2T PO (14:35)
[2016-08-16] MEDS ORDERED: AMLO5TAB2 PO (10:03)
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
[2016-08-29] MEDS ORDERED: TRAM50TA PO (09:44)
[2016-08-29] MEDS ORDERED: OMEP40CA2 PO (09:44)
[2016-08-29] MEDS ORDERED: HYDR-3533 PO (09:47)
[2016-10-06] MEDS ORDERED: OMEP40CA2 PO (14:38)
== END 2016-07-07 14:53 | disposition home or self-care (01) | DRG 100 ==
LOC: NEPC 03:45 → NEDA 06:36 → N03B 11:21 → N05A 07-05 15:38
PROVIDERS: ADMIT Family Medicine; ATTEND Family Medicine
PROC: 0BH17EZ Insertion of Endotracheal Airway into Trachea, Via Natural or Artificial Opening (ICD-10-PCS; principal; 2016-07-02)
PROC: 5A1945Z Respiratory Ventilation, 24-96 Consecutive Hours (ICD-10-PCS; 2016-07-02)
DX: G40.909 Epilepsy, unspecified, not intractable, without status epilepticus (principal); J96.91 Respiratory failure, unspecified with hypoxia; N17.0 Acute kidney failure with tubular necrosis; J69.0 Pneumonitis due to inhalation of food and vomit; G93.40 Encephalopathy, unspecified; E87.2 Acidosis; G47.30 Sleep apnea, unspecified; I10 Essential (primary) hypertension; I80.9 Phlebitis and thrombophlebitis of unspecified site; J45.909 Unspecified asthma, uncomplicated; R31.9 Hematuria, unspecified; Z91.19 Patient's noncompliance with other medical treatment and regimen; F41.9 Anxiety disorder, unspecified; B34.9 Viral infection, unspecified; F17.210 Nicotine dependence, cigarettes, uncomplicated
CPT/HCPCS: 31500; 36600; 70450; 70551; 71010; 71275; 76775; 76937; 80048; 80053; 80307; 80320; 81001; 82550; 82552; 82570; 82805; 82948; 83605; 83735; 83880; 83935; 84100; 84300; 84484; 85025; 85379; 85610; 85660; 85730; 87040; 87641; 87804; 93005; 94002; 94003; 94150; 94667; 94668; 95819; C9399; J0360; J1644; J1953; J2060; J2250; J2270; J2405; J2543; J2550; J2930; J3370; J7030; J7040; J7512; Q9967

== ENCOUNTER → 2016-07-16 | Outpatient (CLI) | payer MEDICARE, OTHER ==
[~2016-07-16] MED LIST changes: +AMLO10 PO; +AMLO5TAB2 PO; -AMOX875T PO; +AMOX875T2 PO; +CHLO25TA2 PO; +CLON.2 PO; +CLON0.2T PO; +DICL1GEL TOPICAL; +HYDR-3533 PO; +KEPP750T PO; +LOSA50TA PO; +NAPR500T PO; +OMEP40CA2 PO; +TRAM50TA PO; -ZYRT10TA PO
[2016-07-16 09:47] LABS: BICARBONATE 30.2 MEQ/L (21.0-32.0); POTASSIUM 3.6 MEQ/L (3.5-5.1)
== END ==
LOC: CLAB 08:59
PROVIDERS: ATTEND Family Medicine
DX: N17.9 Acute kidney failure, unspecified (principal)
CPT/HCPCS: 36415; 80048

== ENCOUNTER → 2016-08-06 | Outpatient (CLI) | payer MEDICARE, OTHER ==
[~2016-08-06] MED LIST changes: -AMOX875T2 PO; -CLON.2 PO; -METO25TA3 PO
[2016-08-06 10:35] LABS: BICARBONATE 30.6 MEQ/L (21.0-32.0); POTASSIUM 3.3 MEQ/L (3.5-5.1)
== END ==
LOC: CLAB 09:34
PROVIDERS: ATTEND Family Medicine
DX: N17.9 Acute kidney failure, unspecified (principal); R19.7 Diarrhea, unspecified
CPT/HCPCS: 36415; 80048

== ENCOUNTER → 2016-08-07 | Outpatient (CLI) | payer MEDICARE, OTHER ==
[2016-08-07 10:49] LABS: C. DIFF EPI 027 PRESUMPTIVE NEGATIVE (NEGATIVE); C. DIFF TOXIN PCR NEGATIVE (NEGATIVE)
== END ==
LOC: CLAB 08:49
PROVIDERS: ATTEND Family Medicine
DX: R19.7 Diarrhea, unspecified (principal)
CPT/HCPCS: 87205; 87493; 87506

== ENCOUNTER 2016-11-25 12:57 | Emergency (ER) | payer MEDICARE, OTHER ==
[~2016-11-25] VITALS: Ht 180.3 cm; Wt 100.0 kg
[~2016-11-25 12:57] MED LIST changes: -AMLO10 PO; -CLON0.2T PO; -NAPR500T PO; -TRAM50TA PO
[2016-11-25 12:59] VITALS: BP 152/98; PULSE 75; RESP 18; TEMP 98.1; O2SAT 99
--- NOTE | 2016-11-25 14:35 | PD ---
HPI Chief Complaint: Injury Time Seen by Provider: 14:29 Travel History International Travel<30 days: No Contact w/Intl Traveler<30days: No Traveled to known affect area: No History of Present Illness HPI This is a 36-year-old male who presents the emergency department with swelling and pain in his right leg immediately below his right knee that started last night, constant, severe, worse when something touches it. He denies any chest pain. He's never had anything like this before. PFSH Past Medical History Asthma: No Cancer: No Cardiovascular Problems: No COPD: No Cerebrovascular Accident: No Diminished Hearing: No Endocrine: No Genitourinary: No Hypertension: Yes Immune Disorder: No Musculoskeletal: No Neurologic: Yes (seizures ) Psychiatric: No Reproductive: No Respiratory: Yes (sleep apnea on CPAP at night ) Immunizations Current: Yes Migraines: Yes Seizures: Yes Sleep Apnea: Yes Past Surgical History Abdominal Surgery: No AICD: No Arteriovenous Shunt: No Cardiac Surgery: No Ear Surgery: No Endocrine Surgery: No Eye Surgery: No Genitourinary Surgery: No Gynecologic Surgery: No Insulin Pump: No Joint Replacement: No Oral Surgery: Yes (tonsillectomy ) Pacemaker: No Thoracic Surgery: No Tonsillectomy: Yes Social History Alcohol Use: No (PT DENIES) Tobacco Use: Yes (3-4 cigarettes per day) Substance Use: No Allergies-Medications (Allergen,Severity, Reaction): Coded Allergies: Latex (Verified Allergy, Intermediate, RASH "ONLY IF I WEAR THE GLOVES", ) Lisinopril (Verified Allergy, Intermediate, cough, 08/29/16) OLIVIA inhibitor cough Darvocet-N 100 (Verified Allergy, Mild, "MY FACE BREAKS OUT WITH WHELPS", 08/29/16) *MDRO Multi-Drug Resistant Organism (Verified Adverse Reaction, Unknown, MRSA, 08/29/16) MRSA (arm wound) - 09/24/07 Reported Meds & Prescriptions Reported Meds & Active Scripts Active Omeprazole 40 Mg Cap 40 Mg PO DAILY Lortab (Hydrocodone-Acetaminophen) 5-325 Mg Tab 1 Tab PO Q6H PRN Amlodipine (Amlodipine Besylate) 5 Mg Tab 5 Mg PO DAILY Chlorthalidone 25 Mg Tab 12.5 Mg PO DAILY Take 1/2 tab orally daily Losartan (Losartan Potassium) 50 Mg Tab 50 Mg PO DAILY Voltaren Topical (Diclofenac Topical) 1% Gel 1 Applic TOPICAL QID Keppra (Levetiracetam) 750 Mg Tab 750 Mg PO BID Review of Systems Except as stated in HPI: all other systems reviewed are Neg Physical Exam Narrative GENERAL:Well appearing, no acute distress SKIN: Raised erythematous cord immediately below the medial aspect of the right knee, tender and slightly warm HEAD: Atraumatic. Normocephalic. EYES: Pupils equal and round. No injection or drainage. ENT: Moist mucous membranes NECK: Trachea midline. CARDIOVASCULAR: Regular rate and rhythm. No murmur appreciated. RESPIRATORY: Clear to auscultation. Breath sounds equal bilaterally. GASTROINTESTINAL: Abdomen soft, non-tender, nondistended. MUSCULOSKELETAL: No obvious deformities. NEUROLOGICAL: Awake and alert. No obvious cranial nerve deficits. Moving all extremities. PSYCHIATRIC: Appropriate mood and affect; insight and judgment normal. Data Data Last Documented VS Vital Signs Date Time Temp Pulse Resp B/P Pulse Ox O2 Delivery O2 Flow Rate FiO2 11/25/16 12:59 98.1 75 18 152/98 99 Orders Us Leg Venous Doppler (11/25/16 ) Acetaminophen (Tylenol) (11/25/16 14:45) MDM Medical Decision Making Medical Screen Exam Complete: Yes Emergency Medical Condition: Yes Interpretation(s) Afebrile, no tachycardia, hypertensive Ultrasound: Negative for DVT Differential Diagnosis Superficial thrombophlebitis, DVT, contusion, sprain Narrative Course This is a 36-year-old male who presents to the emergency department with pain and a raised lump on the medial aspect of his left knee. He appears to have superficial thrombophlebitis on exam. I ordered an ultrasound to rule out extension into a DVT which was negative. I think the patient can be discharged home on anti-inflammatories and can use warm compresses on the area. Diagnosis Primary Impression: Superficial thrombophlebitis Patient Instructions: General Instructions Additional Instructions: If you develop chest pain, shortness of breath or increasing swelling in her leg return to the emergency department. Use naproxen and apply warm compresses to your leg 4 times a day. Med/Other Pt SpecificInfo: Prescription(s) given Scripts Naproxen 500 Mg [id number] Mg PO BID PRN (PAIN SCALE 4 TO 10) #20 TAB Prov:Bharati Phelps MD 11/25/16 Disposition: 01 DISCHARGE HOME Condition: Stable Bharati Phelps MD Nov 25, 2016 14:35
[2016-11-25] MEDS ORDERED: ACETAMINOPHEN 500 MG CPLT PO ONE (14:45)
--- NOTE | 2016-11-25 15:22 | RADRPT ---
EXAM DATE/TIME: 11/25/2016 14:55 [facility] COMPARISON: No previous studies available for comparison. INDICATIONS : Right leg pain. MEDICAL HISTORY : Hypertension. Seizures. Migraines. Asthma. Sleep apnea. Substance use. MRSA. SURGICAL HISTORY : Tonsillectomy. Right wrist ORIF. ENCOUNTER: Initial ACUITY: 1 day PAIN SCORE: 7/10 LOCATION: Right leg. TECHNIQUE: Venous ultrasound of the leg was performed from the inguinal ligament to the proximal calf. Real-florence e, color Doppler and spectral tracing, compression and augmentation techniques were used. FINDINGS: There is normal compressibility of the deep venous system from the inguinal region to the proximal ca lf. No echogenic clot is seen in the lumen of the common femoral, femoral, popliteal, and posterior tibial veins. There is a normal response of the venous system to proximal and distal augmentation an d respiration. CONCLUSION: Negative for deep venous thrombosis. Fili Patel MD FACR on November 25, 2016 at 15:19 Board Certified Radiologist. This report was verified electronically.
[2016-11-25] MEDS ORDERED: NAPR500T PO (15:32)
[2016-11-25 15:44] VITALS: BP 148/80
== END 2016-11-25 15:50 | disposition home or self-care (01) ==
LOC: NEPD 12:57
DX: I80.9 Phlebitis and thrombophlebitis of unspecified site (principal); I10 Essential (primary) hypertension; Z72.0 Tobacco use; G40.89 Other seizures
CPT/HCPCS: 93971; 99284

== ENCOUNTER 2017-11-13 09:47 | Emergency (ER) | payer MEDICARE, MEDICAID ==
[~2017-11-13] VITALS: Ht 180.3 cm; Wt 105.0 kg
[2017-11-13] VITALS (7 sets, daily range): BP systolic 153–180; BP diastolic 92–106; PULSE 63–83; RESP 16–17; TEMP 98.4; O2SAT 99–100
[~2017-11-13 09:47] MED LIST changes: -CHLO25TA2 PO; -DICL1GEL TOPICAL; -HYDR-3533 PO; -OMEP40CA2 PO
[2017-11-13] MEDS ORDERED: LORazepam 0.5 MG TAB PO ONE (10:15)
--- NOTE | 2017-11-13 10:29 | PD ---
HPI Chief Complaint: Seizure Time Seen by Provider: 10:07 Travel History International Travel<30 days: No Contact w/Intl Traveler<30days: No Traveled to known affect area: No History of Present Illness HPI This patient was brought to the ER after he had a seizure. He has history of seizure disorder and takes Keppra 750 mg twice daily. He reports compliance. He started to feel mentally cloudy and developed a headache. He had some witnessed seizure activity by a coworker. He does not recall the events. He does complain of headache. Blood pressure is quite accelerated at this point. He does not have history of hypertension. No injury to the head or neck. He has no fever. No alleviating factors. No exacerbating factors. Duration 1 hour PFSH Past Medical History Asthma: No Cancer: No Cardiovascular Problems: No COPD: No Cerebrovascular Accident: No Diminished Hearing: No Endocrine: No Genitourinary: No Headaches: Yes Hypertension: Yes Immune Disorder: No Musculoskeletal: No Neurologic: Yes (seizures ) Psychiatric: No Reproductive: No Respiratory: Yes (sleep apnea on CPAP at night ) Immunizations Current: Yes Migraines: Yes Seizures: Yes Sleep Apnea: Yes Influenza Vaccination: Yes Past Surgical History Abdominal Surgery: No AICD: No Arteriovenous Shunt: No Cardiac Surgery: No Ear Surgery: No Endocrine Surgery: No Eye Surgery: No Genitourinary Surgery: No Gynecologic Surgery: No Insulin Pump: No Joint Replacement: No Oral Surgery: Yes (tonsillectomy ) Pacemaker: No Thoracic Surgery: No Tonsillectomy: Yes Other Surgery: Yes (tonsillectomy) Social History Alcohol Use: Yes (RARELY) Tobacco Use: Yes (10 CIGS/DAY) Substance Use: Yes (THC) Allergies-Medications (Allergen,Severity, Reaction): Coded Allergies: latex (Unverified Allergy, Intermediate, RASH "ONLY IF I WEAR THE GLOVES" , 11/13/17) lisinopril (Unverified Allergy, Intermediate, cough, 11/13/17) OLIVIA inhibitor cough acetaminophen (Unverified Allergy, Mild, "MY FACE BREAKS OUT WITH WHELPS" , 11/13/17) propoxyphene (Unverified Allergy, Mild, "MY FACE BREAKS OUT WITH WHELPS", 11/13/17) *MDRO Multi-Drug Resistant Organism (Verified Adverse Reaction, Unknown, MRSA, 11/13/17) MRSA (arm wound) - 09/24/07 Reported Meds & Prescriptions Reported Meds & Active Scripts Active Losartan (Losartan Potassium) 50 Mg Tab 50 Mg PO DAILY Keppra (Levetiracetam) 750 Mg Tab 750 Mg PO BID Amlodipine (Amlodipine Besylate) 5 Mg Tab 5 Mg PO DAILY Review of Systems General / Constitutional: No: Fever Eyes: No: Visual changes HENT: Positive: Headaches Cardiovascular: No: Chest Pain or Discomfort Respiratory: No: Shortness of Breath Gastrointestinal: No: Abdominal Pain Genitourinary: No: Dysuria Musculoskeletal: No: Pain Skin: No Rash Neurologic: Positive: Headache, Seizures, No: Weakness Psychiatric: No: Depression, Disorder of Thought Endocrine: No: Polydipsia Hematologic/Lymphatic: No: Easy Bruising Physical Exam Narrative GENERAL: Well-nourished, well-developed patient in no apparent distress. SKIN: Focused skin assessment reveals no rash and nodules. Skin is Warm and dry. HEAD: Atraumatic. Normocephalic. EYES: Pupils equal and round. No scleral icterus. No injection or drainage. ENT: No nasal bleeding or discharge. Mucous membranes pink and moist. No tongue injury NECK: Trachea midline. No JVD. CARDIOVASCULAR: Regular rate and rhythm. No murmur appreciated. RESPIRATORY: No accessory muscle use. Clear to auscultation. Breath sounds equal bilaterally. GASTROINTESTINAL: Abdomen soft, non-tender, nondistended. Hepatic and splenic margins not palpable. MUSCULOSKELETAL: No obvious deformities. No clubbing. No cyanosis. No edema. NEUROLOGICAL: Awake and alert. No obvious cranial nerve deficits. Motor grossly within normal limits. Normal speech. PSYCHIATRIC: Appropriate mood and affect; insight and judgment reasonable. Data Data Last Documented VS Vital Signs Date Time Temp Pulse Resp B/P (MAP) Pulse Ox O2 Delivery O2 Flow Rate FiO2 11/13/17 16:10 74 16 153/94 (113) 100 Room Air 11/13/17 09:[address] Brain W/O Iv Contrast(Rout) (11/13/17 ) Iv Access Insert/Monitor (11/13/17 10:13) Complete Blood Count With Diff (11/13/17 10:13) Basic Metabolic Panel (Bmp) (11/13/17 10:13) Oxycodone (Roxicodone) (11/13/17 10:15) Lorazepam (Ativan) (11/13/17 10:15) Clonidine (Catapres) (11/13/17 11:45) Arterial Blood Gas (Abg) (11/13/17 ) Nifedipine (Procardia) (11/13/17 15:45) Labs Laboratory Tests Test 11/13/17 10:21 White Blood Count 4.8 TH/MM3 Red Blood Count 4.31 MIL/MM3 Hemoglobin 13.1 GM/DL Hematocrit 39.8 % Mean Corpuscular Volume 92.4 FL Mean Corpuscular Hemoglobin 30.5 PG Mean Corpuscular Hemoglobin Concent 33.1 % Red Cell Distribution Width 12.6 % Platelet Count 246 TH/MM3 Mean Platelet Volume 8.3 FL Neutrophils (%) (Auto) 58.4 % Lymphocytes (%) (Auto) 33.1 % Monocytes (%) (Auto) 7.2 % Eosinophils (%) (Auto) 0.5 % Basophils (%) (Auto) 0.8 % Neutrophils # (Auto) 2.8 TH/MM3 Lymphocytes # (Auto) 1.6 TH/MM3 Monocytes # (Auto) 0.3 TH/MM3 Eosinophils # (Auto) 0.0 TH/MM3 Basophils # (Auto) 0.0 TH/MM3 CBC Comment DIFF FINAL Differential Comment Blood Urea Nitrogen 17 MG/DL Creatinine 1.29 MG/DL Random Glucose 88 MG/DL Calcium Level 9.1 MG/DL Sodium Level 141 MEQ/L Potassium Level 3.9 MEQ/L Chloride Level 106 MEQ/L Carbon Dioxide Level 26.7 MEQ/L Anion Gap 8 MEQ/L Estimat Glomerular Filtration Rate 76 ML/MIN [facility] Medical Decision Making Medical Screen Exam Complete: Yes Emergency Medical Condition: Yes Medical Record Reviewed: Yes Differential Diagnosis Breakthrough seizure, postictal state, intracranial hemorrhage, migraine Narrative Course I have reviewed the patient's electronic medical record. He was diagnosed with seizures in 2016 Patient is neurologically intact. No objective findings on exam. Complains of headache and does have accelerated hypertension. I have ordered brain CT and given him something for pain. Given a dose of Ativan and will observe him for a while IV placed and labs sent Gave the patient a dose of clonidine for accelerated hypertension. On recheck her blood pressure was still significantly high. I suggested a dose of Procardia and recheck in a half hour and he refused. He was very anxious to go home. Then the complained about his saturations periodically dropping. They would then come up but she was concerned about it. I suggested a room air ABG to assess his true oxygenation but the patient refused that and said he just wanted to go home. He has not had any recurrent seizure activity. He should follow-up with his neurologist. He should track his blood pressure and discuss with his family physician. So I recommended further measures such as ABG and blood pressure control but they refused and wanted go home Brain CT is normal and labs are normal Diagnosis Primary Impression: Breakthrough seizure Additional Impression: Accelerated hypertension Additional Instructions: The patient was advised to follow up with their physician and return if they worsen. Check and record blood pressure daily Med/Other Pt SpecificInfo: Other Disposition: 01 DISCHARGE HOME Condition: Stable Dieudonne Harris MD Nov 13, 2017 10:29
[2017-11-13 10:36] LABS: AUTOMATED NEUTROPHIL # 2.8 TH/MM3 (1.8-7.7); BASOPHIL % 0.8 % (0.0-2.0); EOSINOPHIL % 0.5 % (0.0-4.0); HEMATOCRIT 39.8 % (39.0-51.0); HEMOGLOBIN 13.1 GM/DL (13.0-17.0); LYMPH % 33.1 % (9.0-44.0); LYMPHOCYTE # 1.6 TH/MM3 (1.0-4.8); MEAN CELL VOLUME 92.4 FL (80.0-100.0); MEAN CORPUSCULAR HEMOGLOBIN 30.5 PG (27.0-34.0); MEAN CORPUSCULAR HGB CONC 33.1 % (32.0-36.0); MEAN PLATELET VOLUME 8.3 FL (7.0-11.0); MONO % 7.2 % (0.0-8.0); MONOCYTE # 0.3 TH/MM3 (0-0.9); NEUT % 58.4 % (16.0-70.0); PLATELET COUNT 246 TH/MM3 (150-450); RED BLOOD COUNT 4.31 MIL/MM3 (4.50-5.90); RED CELL DISTRIBUTION WIDTH 12.6 % (11.6-17.2); WHITE BLOOD COUNT 4.8 TH/MM3 (4.0-11.0)
--- NOTE | 2017-11-13 10:46 | RADRPT ---
EXAM DATE: 11/13/2017 10:43 AM EDT AGE/SEX: 37 years / Male INDICATIONS: Patient states he fell while working. Syncopal episode. Headache. Nausea. Dizziness. CLINICAL DATA: This is the patient's initial encounter. Patient reports that signs and symptoms have been present for 1 day and indicates a pain score of 1/10. MEDICAL/SURGICAL HISTORY: Hypertension. Seizures. None. RADIATION DOSE: 38.09 CTDI (mGy) COMPARISON: [facility] [place], CT BRAIN W/O CONTRAST, 07/02/2016. . TECHNIQUE: CT of the head without contrast. Using automated exposure control and adjustment of the mA and/or kV according to patient size, radiation dose was kept as low as reasonably achievable to ob tain optimal diagnostic quality images. FINDINGS: Cerebrum: The ventricles are normal for age. No evidence of midline shift, mass lesion, hemorrhage or acute infarction. No extraaxial fluid collections are seen. Posterior Fossa: The cerebellum and brainstem are intact. The 4th ventricle is midline. The cerebe llopontine angle is unremarkable. Extracranial: The visualized portion of the orbits is intact. Skull: The calvaria is intact. No evidence of skull fracture. CONCLUSION: Negative CT Head non contrast. Electronically signed by: Gokul Mckeon MD 11/13/2017 10:45 AM EDT
[2017-11-13 11:02] LABS: BICARBONATE 26.7 MEQ/L (21.0-32.0); CALCIUM 9.1 MG/DL (8.5-10.1); CREATININE 1.29 MG/DL (0.60-1.30)
[2017-11-13] MEDS ORDERED: cloNIDine HCL 0.2 MG TAB PO ONE (11:45)
[2017-11-13] MEDS ORDERED: NIFEdipine 20 MG CAP PO ONE (15:45)
== END 2017-11-13 17:11 | disposition home or self-care (01) ==
LOC: NEPC 09:47
DX: G40.909 Epilepsy, unspecified, not intractable, without status epilepticus (principal); R51 Headache; I10 Essential (primary) hypertension; G47.30 Sleep apnea, unspecified; F17.210 Nicotine dependence, cigarettes, uncomplicated; F19.90 Other psychoactive substance use, unspecified, uncomplicated; Z79.899 Other long term (current) drug therapy
CPT/HCPCS: 70450; 80048; 85025; 99284